=== PATIENT | male | born 1970 | race Caucasian/White ===

== ENCOUNTER 2017-05-26 12:18 | Inpatient (IN) | payer OTHER ==
[~2017-05-26] VITALS: Ht 193 cm; Wt 80.2 kg
[2017-05-26 13:01] LABS: INR 1.3 INR; PROTHROMBIN TIME 12.9 SECONDS (9.0-12.0)
[2017-05-26 13:06] LABS: ALANINE AMINOTRANSFERASE 84 U/L (12-78); ALBUMIN 2.1 G/DL (3.4-5.0); ALBUMIN/GLOBULIN RATIO 0.3 (1.1-1.5); ALKALINE PHOSPHATASE 325 IU/L (46-116); ANION GAP 11 (8-16); ASPARTATE AMINO TRANSFERASE 215 U/L (10-37); BILIRUBIN,TOTAL 2.4 MG/DL (0.1-1.0); BLOOD UREA NITROGEN 10 MG/DL (7-18); BUN/CREATININE RATIO 10.5 (5.4-32.0); CALCIUM 8.3 MG/DL (8.5-10.1); CHLORIDE 93 MMOL/L (99-107); CREATININE 0.95 MG/DL (0.60-1.10); GLUCOSE 115 MG/DL (70-104); SODIUM 135 MMOL/L (135-145); TOTAL CARBON DIOXIDE 30.9 MMOL/L (24-32); TOTAL PROTEIN 8.2 G/DL (6.4-8.2); eGFR 85 ML/MIN
[2017-05-26 13:11] LABS: BASOPHILS # (AUTO) 0.2 X10'3 (0-0.2); BASOPHILS % (AUTO) 0.7 % (0-1); EOSINOPHILS % (AUTO) 0.2 % (0-6); HEMATOCRIT 32.3 % (42.0-52.0); HEMOGLOBIN 11.1 g/dl (14.0-17.9); LYMPHOCYTES # (AUTO) 2.7 X10'3 (1.1-4.8); LYMPHOCYTES % (AUTO) 11.7 % (21-51); MEAN CORPUSCULAR HEMOGLOBIN 38.3 PG (27.0-31.0); MEAN CORPUSCULAR HGB CONC 34.5 % (33.0-36.5); MEAN PLATELET VOLUME 9.4 FL (7.4-10.4); MONOCYTES # (AUTO) 0.5 X10'3 (0-0.9); MONOCYTES % (AUTO) 2.1 % (2-12); NEUTROPHILS # (AUTO) 19.4 X10'3 (1.8-7.7); NEUTROPHILS % (AUTO) 85.3 % (42-75); PLATELET COUNT 289 X10'3 (140-440); POTASSIUM 2.4 MMOL/L (3.5-5.1); RED BLOOD COUNT 2.91 X10'6 (4.70-6.10); RED CELL DISTRIBUTION WIDTH 16.1 % (11.5-14.5); WHITE BLOOD COUNT 22.8 X10'3 (4.5-11.0)
[2017-05-26] MEDS ORDERED: MORPHINE 2MG in 2ml NS syringe IV PRN (13:25)
[2017-05-26] MEDS ORDERED: ondansetron/PF 4mg/2ml inj IV ONE (13:25)
[2017-05-26] MEDS ORDERED: normal saline 1000ML IV soln IVB ONE (13:25)
[2017-05-26] MEDS ORDERED: potassium Cl 10 mEq/100mL bag IV ONE (14:15)
[2017-05-26] MEDS ORDERED: potass W/LIDOcaine 10mEq/100ml 100 ML IV ONE (14:20)
[2017-05-26] MEDS: morphine 4 MG/ML inj SYRINge IV PRN ×2 (14:26→16:27)
[2017-05-26] MEDS ORDERED: NO HOME MEDS (14:46)
[2017-05-26] MEDS ORDERED: normal saline 1000ML IV soln IV ONE (14:50)
[2017-05-26] MEDS ORDERED: metroNIDAZOLE-Flagyl 500mg/NS 100 ML IV STA (14:51)
[2017-05-26] MEDS ORDERED: levoFLOXACIN-Levaquin 500mg/D5 100 ML IV ONE (14:55)
[2017-05-26 15:34] LABS: LIPASE 397 U/L (73-393)
[2017-05-26 16:07] LABS: CLARITY,URINE SLIGHTLY CLOUDY (Clear); COLOR,URINE YELLOW (Yellow); GLUCOSE, URINE NEGATIVE (Neg); KETONES,URINE NEGATIVE (Neg); LEUKOCYTE ESTERASE ,URINE NEGATIVE (Neg); NITRITES, URINE NEGATIVE (Neg); OCCULT BLOOD,URINE NEGATIVE (Neg); PROTEIN,URINE 30 mg/dl (Neg)
[2017-05-26 16:12] LABS: UA COLLECTION TYPE URINAL
[2017-05-26 16:15] LABS: SQUAMOUS EPITHELIAL CELL,UR FEW /LPF (FEW)
[2017-05-26 16:16] LABS: BACTERIA,URINE FEW /HPF (Neg); HYALINE CASTS >30 /LPF (NEGATIVE); RBC,URINE 0-2 /HPF (0-2); WBC,URINE 0-4 /HPF (0-4)
[2017-05-26 16:21] LABS: URINE AMPHETAMINE SCREEN NEGATIVE (Neg); URINE BARBITUATE SCREEN NEGATIVE (Neg); URINE BENZODIAZEPINES SCREEN NEGATIVE (Neg); URINE CANNABINOID SCREEN NEGATIVE (Neg); URINE COCAINE SCREEN NEGATIVE (Neg); URINE METHADONE SCREEN NEGATIVE (Neg); URINE OPIATE SCREEN POSITIVE (Neg); URINE PHENCYCLIDINE SCREEN NEGATIVE (Neg)
[2017-05-26] MEDS ORDERED: HYDROmorphone inj. 0.5 MG/0.5 ML DISP.SYRIN IV PRN (16:40)
[2017-05-26] MEDS: K and/or MAG REPLACEMENT MC SCH (16:40)
[2017-05-26] MEDS ORDERED: magnesium 4gm in 100ml NS 100 ML IV PRN (16:40)
[2017-05-26] MEDS ORDERED: magnesium 2GM in 50ml NS 50 ML IV PRN (16:40)
[2017-05-26] MEDS ORDERED: acetaminophen 325mg tablet PO PRN ×2 (16:40)
[2017-05-26] MEDS ORDERED: potassium Cl 40MEQ/NS 500ml 500 ML IV PRN (16:40)
[2017-05-26] MEDS ORDERED: ondansetron/PF 4mg/2ml inj IV PRN (16:40)
[2017-05-26] MEDS ORDERED: Potassium Cl inj 20 MEQ in normal saline 1000ml 990 ML IV SCH (16:40)
[2017-05-26] MEDS ORDERED: magnesium hydroxide 30ml (MOM) UD suspension PO PRN (16:40)
[2017-05-26] MEDS ORDERED: potassium Cl 20 mEq SR tablet PO PRN ×2 (16:40)
[2017-05-26] MEDS ORDERED: magnesium Cl slow-release 64mg tablet PO PRN (16:40)
[2017-05-26 17:05] LABS: HIV ANTIBODY 1&2 RAPID NON-REACTIVE (Neg)
[2017-05-26] MEDS: potassium cl 20mEq in 1/2 NS 1,000 ML IV SCH (17:36)
[2017-05-26 17:54] LABS: POTASSIUM 2.3 MMOL/L (3.5-5.1)
[2017-05-26 18:16] LABS: PLATELET ESTIMATE NORMAL; TOTAL CELLS COUNTED 100
[2017-05-26 18:17] LABS: ANISOCYTOSIS 1+
[2017-05-26 18:20] LABS: POLYCHROMASIA FEW
[2017-05-26 18:21] LABS: TOXIC GRANULATION 1+
[2017-05-26] MEDS: diatr meglu/diatrizoate 30ml oral sol.-(3 dose) bottle PO SCH (21:44)
[2017-05-26] MEDS ORDERED: potassium Cl oral solution 20 MEQ/15 ML PO PRN (21:49)
[2017-05-26] MEDS ORDERED: potassium Cl 40MEQ/NS 500ml 500 ML IV ONE (23:09)
[2017-05-26] MEDS: HYDROmorphone inj. 0.5 MG/0.5 ML DISP.SYRIN IV PRN (23:19)
[2017-05-27] VITALS: BP 121/72
[2017-05-27] MEDS: metroNIDAZOLE-Flagyl 500mg/NS 100 ML IV SCH ×4 (00:28→23:32)
[2017-05-27] MEDS: HYDROmorphone inj. 0.5 MG/0.5 ML DISP.SYRIN IV PRN ×4 (03:05→21:51)
[2017-05-27 05:48] LABS: ALANINE AMINOTRANSFERASE 62 U/L (12-78); ALBUMIN 1.6 G/DL (3.4-5.0); ALBUMIN/GLOBULIN RATIO 0.3 (1.1-1.5); ALKALINE PHOSPHATASE 248 IU/L (46-116); ANION GAP 7 (8-16); ASPARTATE AMINO TRANSFERASE 174 U/L (10-37); BILIRUBIN,TOTAL 3.5 MG/DL (0.1-1.0); BLOOD UREA NITROGEN 9 MG/DL (7-18); BUN/CREATININE RATIO 12.2 (5.4-32.0); CALCIUM 7.2 MG/DL (8.5-10.1); CHLORIDE 102 MMOL/L (99-107); CHOL/HDL RATIO 5.8 (0.00-4.99); CHOLESTEROL 75 MG/DL (0-200); CREATININE 0.74 MG/DL (0.60-1.10); GLUCOSE 85 MG/DL (70-104); HDL CHOLESTEROL 13 MG/DL (35-60); LDL CHOLESTEROL 55 MG/DL (50-100); MAGNESIUM 1.6 MG/DL (1.5-2.4); PHOSPHORUS 2.7 MG/DL (2.3-4.5); SODIUM 140 MMOL/L (135-145); TOTAL CARBON DIOXIDE 30.9 MMOL/L (24-32); TOTAL PROTEIN 6.4 G/DL (6.4-8.2); TRIGLYCERIDES 82 MG/DL (20-135); eGFR > 90 ML/MIN
[2017-05-27 05:52] LABS: BASOPHILS % (AUTO) 0.4 % (0-1); EOSINOPHILS # (AUTO) 0.3 X10'3 (0-0.9); HEMATOCRIT 26.7 % (42.0-52.0); HEMOGLOBIN 9.2 g/dl (14.0-17.9); LYMPHOCYTES # (AUTO) 1.5 X10'3 (1.1-4.8); LYMPHOCYTES % (AUTO) 10.9 % (21-51); MEAN CORPUSCULAR HEMOGLOBIN 38.8 PG (27.0-31.0); MEAN CORPUSCULAR HGB CONC 34.5 % (33.0-36.5); MEAN CORPUSCULAR VOLUME 112.3 FL (78-98); MONOCYTES # (AUTO) 0.7 X10'3 (0-0.9); MONOCYTES % (AUTO) 4.9 % (2-12); NEUTROPHILS # (AUTO) 11.2 X10'3 (1.8-7.7); NEUTROPHILS % (AUTO) 81.8 % (42-75); PLATELET COUNT 183 X10'3 (140-440); RED BLOOD COUNT 2.38 X10'6 (4.70-6.10); WHITE BLOOD COUNT 13.7 X10'3 (4.5-11.0)
[2017-05-27 06:23] VITALS: BP 106/68
[2017-05-27 06:25] LABS: POTASSIUM 2.8 MMOL/L (3.5-5.1)
[2017-05-27] MEDS: K and/or MAG REPLACEMENT MC SCH (07:03)
[2017-05-27] MEDS: levoFLOXACIN-Levaquin 500mg/D5 100 ML IV SCH (07:14)
[2017-05-27] MEDS: potassium Cl 40MEQ/NS 500ml 500 ML IV PRN (07:15)
[2017-05-27] MEDS: diatr meglu/diatrizoate 30ml oral sol.-(3 dose) bottle PO SCH ×2 (07:15→21:00)
[2017-05-27] MEDS: potassium cl 20mEq in 1/2 NS 1,000 ML IV SCH ×2 (07:17→23:32)
[2017-05-27] MEDS ORDERED: iohexol 300mg/ml 100ml inj. ONE (08:15)
[2017-05-27 09:04] LABS: CRYPTOSPORIDIUM AG NEGATIVE (Neg); GIARDIA LAMBLIA AG NEGATIVE (Neg)
[2017-05-27 09:10] LABS: C DIFF ANTIGEN NEGATIVE (NEGATIVE); C DIFF SPECIMEN=DIARRHEA? ACCEPTABLE; C DIFFICILE TOXINS A&B NEGATIVE (Neg)
[2017-05-27] MEDS ORDERED: LIDOcaine 1%/PF (10mg/ml) 5ml vial ONE (10:13)
[2017-05-27 11:48] VITALS: BP 110/72
[2017-05-27 12:04] LABS: ANISOCYTOSIS 1+; PLATELET ESTIMATE NORMAL
[2017-05-27 12:05] LABS: HYPOCHROMASIA 2+; POLYCHROMASIA FEW
[2017-05-27 12:09] LABS: STOMATOCYTES 1+
[2017-05-27] MEDS ORDERED: HYDROmorphone inj. 0.5 MG/0.5 ML DISP.SYRIN IV ONE (19:40)
[2017-05-27 20:00] VITALS: BP 100/62
[2017-05-27] MEDS: morphine 4 MG/ML inj SYRINge IV PRN (23:33)
[2017-05-28] VITALS: BP 131/88
[2017-05-28] MEDS: HYDROmorphone inj. 0.5 MG/0.5 ML DISP.SYRIN IV PRN ×5 (02:46→20:40)
[2017-05-28] MEDS ORDERED: loperamide 2mg capsule PO PRN (03:00)
[2017-05-28 05:42] LABS: BASOPHILS # (AUTO) 0.1 X10'3 (0-0.2); BASOPHILS % (AUTO) 0.9 % (0-1); EOSINOPHILS # (AUTO) 0.2 X10'3 (0-0.9); EOSINOPHILS % (AUTO) 1.3 % (0-6); HEMATOCRIT 29.8 % (42.0-52.0); HEMOGLOBIN 10.1 g/dl (14.0-17.9); LYMPHOCYTES # (AUTO) 1.7 X10'3 (1.1-4.8); LYMPHOCYTES % (AUTO) 11.7 % (21-51); MEAN CORPUSCULAR HEMOGLOBIN 38.6 PG (27.0-31.0); MEAN CORPUSCULAR HGB CONC 33.9 % (33.0-36.5); MEAN CORPUSCULAR VOLUME 113.9 FL (78-98); MEAN PLATELET VOLUME 9.3 FL (7.4-10.4); MONOCYTES # (AUTO) 0.7 X10'3 (0-0.9); MONOCYTES % (AUTO) 4.8 % (2-12); NEUTROPHILS # (AUTO) 11.8 X10'3 (1.8-7.7); NEUTROPHILS % (AUTO) 81.3 % (42-75); PLATELET COUNT 191 X10'3 (140-440); RED BLOOD COUNT 2.61 X10'6 (4.70-6.10); RED CELL DISTRIBUTION WIDTH 17.4 % (11.5-14.5); WHITE BLOOD COUNT 14.5 X10'3 (4.5-11.0)
[2017-05-28 05:59] LABS: ALANINE AMINOTRANSFERASE 72 U/L (12-78); ALBUMIN 1.8 G/DL (3.4-5.0); ALBUMIN/GLOBULIN RATIO 0.3 (1.1-1.5); ALKALINE PHOSPHATASE 308 IU/L (46-116); ANION GAP 10 (8-16); ASPARTATE AMINO TRANSFERASE 195 U/L (10-37); BILIRUBIN,TOTAL 3.3 MG/DL (0.1-1.0); BLOOD UREA NITROGEN 9 MG/DL (7-18); BUN/CREATININE RATIO 12.7 (5.4-32.0); CALCIUM 7.3 MG/DL (8.5-10.1); CHLORIDE 104 MMOL/L (99-107); CREATININE 0.71 MG/DL (0.60-1.10); GLUCOSE 79 MG/DL (70-104); MAGNESIUM 1.5 MG/DL (1.5-2.4); PHOSPHORUS 1.9 MG/DL (2.3-4.5); POTASSIUM 3.3 MMOL/L (3.5-5.1); SODIUM 140 MMOL/L (135-145); TOTAL PROTEIN 7.5 G/DL (6.4-8.2); eGFR > 90 ML/MIN
[2017-05-28 07:09] VITALS: BP 122/87
[2017-05-28] MEDS: metroNIDAZOLE-Flagyl 500mg/NS 100 ML IV SCH ×3 (07:49→23:26)
[2017-05-28] MEDS: levoTHYROXINE 25mcg tablet PO SCH (07:49)
[2017-05-28] MEDS: K and/or MAG REPLACEMENT MC SCH (07:56)
[2017-05-28 08:29] LABS: ANISOCYTOSIS 1+; PLATELET ESTIMATE NORMAL
[2017-05-28 08:30] LABS: POLYCHROMASIA FEW; TARGET CELLS FEW
[2017-05-28] MEDS: potassium cl 20mEq in 1/2 NS 1,000 ML IV SCH ×2 (09:00→18:52)
[2017-05-28] MEDS: levoFLOXACIN-Levaquin 500mg/D5 100 ML IV SCH (09:31)
[2017-05-28 12:19] VITALS: BP 146/99
[2017-05-28] MEDS: potassium Cl 40MEQ/NS 500ml 500 ML IV PRN (12:51)
[2017-05-28 13:24] LABS: HBSAG SCREEN Negative (Negative); HEP A AB, IGM Negative (Negative); HEP B CORE AB, IGM Negative (Negative); HEPATITIS C ANTIBODY <0.1 s/co ratio (0.0-0.9)
[2017-05-28] MEDS: lactobacillus rhamnosus 10,000 MMU CELLS/CAPSULE PO SCH (19:33)
[2017-05-28] MEDS: mag hydrox/Alum hydrox/simeth 30ml oral suspension PO PRN ×2 (19:33→23:33)
[2017-05-28 20:00] VITALS: BP 113/74
[2017-05-28] MEDS: nicotine 14mg patch - 24hr TD SCH (20:30)
[2017-05-29] VITALS: BP 106/69
[2017-05-29] MEDS: HYDROmorphone inj. 0.5 MG/0.5 ML DISP.SYRIN IV PRN ×3 (02:44→10:32)
[2017-05-29 05:35] LABS: ALANINE AMINOTRANSFERASE 72 U/L (12-78); ALBUMIN/GLOBULIN RATIO 0.4 (1.1-1.5); ALKALINE PHOSPHATASE 308 IU/L (46-116); ANION GAP 10 (8-16); ASPARTATE AMINO TRANSFERASE 175 U/L (10-37); BLOOD UREA NITROGEN 10 MG/DL (7-18); BUN/CREATININE RATIO 14.5 (5.4-32.0); CALCIUM 7.4 MG/DL (8.5-10.1); CHLORIDE 104 MMOL/L (99-107); CREATININE 0.69 MG/DL (0.60-1.10); GLUCOSE 80 MG/DL (70-104); MAGNESIUM 1.6 MG/DL (1.5-2.4); PHOSPHORUS 2.4 MG/DL (2.3-4.5); POTASSIUM 3.1 MMOL/L (3.5-5.1); SODIUM 139 MMOL/L (135-145); TOTAL CARBON DIOXIDE 24.6 MMOL/L (24-32); TOTAL PROTEIN 7.7 G/DL (6.4-8.2); eGFR > 90 ML/MIN
[2017-05-29 05:36] LABS: BASOPHILS % (AUTO) 0.3 % (0-1); EOSINOPHILS # (AUTO) 0.2 X10'3 (0-0.9); EOSINOPHILS % (AUTO) 1.6 % (0-6); HEMATOCRIT 29.4 % (42.0-52.0); HEMOGLOBIN 10.1 g/dl (14.0-17.9); LYMPHOCYTES # (AUTO) 1.7 X10'3 (1.1-4.8); LYMPHOCYTES % (AUTO) 11.8 % (21-51); MEAN CORPUSCULAR HEMOGLOBIN 39.3 PG (27.0-31.0); MEAN CORPUSCULAR HGB CONC 34.2 % (33.0-36.5); MEAN CORPUSCULAR VOLUME 114.9 FL (78-98); MONOCYTES # (AUTO) 0.5 X10'3 (0-0.9); MONOCYTES % (AUTO) 3.5 % (2-12); NEUTROPHILS # (AUTO) 12.1 X10'3 (1.8-7.7); NEUTROPHILS % (AUTO) 82.8 % (42-75); PLATELET COUNT 222 X10'3 (140-440); RED BLOOD COUNT 2.56 X10'6 (4.70-6.10); WHITE BLOOD COUNT 14.6 X10'3 (4.5-11.0)
[2017-05-29 05:51] LABS: ANISOCYTOSIS 2+; PLATELET ESTIMATE NORMAL
[2017-05-29 07:00] VITALS: BP 103/74
[2017-05-29] MEDS: potassium Cl oral solution 20 MEQ/15 ML PO PRN ×3 (07:36→18:51)
[2017-05-29] MEDS: lactobacillus rhamnosus 10,000 MMU CELLS/CAPSULE PO SCH ×2 (07:37→19:17)
[2017-05-29] MEDS: levoTHYROXINE 25mcg tablet PO SCH (07:37)
[2017-05-29] MEDS: levoFLOXACIN-Levaquin 500mg/D5 100 ML IV SCH (07:38)
[2017-05-29] MEDS: mag hydrox/Alum hydrox/simeth 30ml oral suspension PO PRN ×4 (07:41→23:15)
[2017-05-29] MEDS: K and/or MAG REPLACEMENT MC SCH (08:00)
[2017-05-29] MEDS: metroNIDAZOLE-Flagyl 500mg/NS 100 ML IV SCH ×3 (09:45→23:15)
[2017-05-29] MEDS: potassium cl 20mEq in 1/2 NS 1,000 ML IV SCH (09:45)
[2017-05-29 11:00] VITALS: BP 96/73
[2017-05-29] MEDS ORDERED: traMADol 50MG tablet PO PRN (12:00)
[2017-05-29] MEDS: traMADol 50MG tablet PO PRN (12:49)
[2017-05-29 18:00] VITALS: BP 110/78
[2017-05-29] MEDS ORDERED: HYDROmorphone 1 mg/ml syringe IV ONE ×2 (19:00→19:15)
[2017-05-29] MEDS ORDERED: HYDROmorphone inj. 0.5 MG/0.5 ML DISP.SYRIN ONE ×2 (19:04→19:13)
[2017-05-29] MEDS ORDERED: HYDROmorphone inj. 0.5 MG/0.5 ML DISP.SYRIN IV ONE ×2 (19:20→19:30)
[2017-05-29] MEDS: nicotine 14mg patch - 24hr TD SCH (19:50)
[2017-05-30] VITALS: BP 115/81
[2017-05-30] MEDS: traMADol 50MG tablet PO PRN ×2 (00:57→14:44)
[2017-05-30 05:31] LABS: BASOPHILS % (AUTO) 0.3 % (0-1); EOSINOPHILS # (AUTO) 0.2 X10'3 (0-0.9); EOSINOPHILS % (AUTO) 2.2 % (0-6); HEMOGLOBIN 9.2 g/dl (14.0-17.9); LYMPHOCYTES # (AUTO) 1.4 X10'3 (1.1-4.8); LYMPHOCYTES % (AUTO) 12.7 % (21-51); MEAN CORPUSCULAR HEMOGLOBIN 39.1 PG (27.0-31.0); MEAN PLATELET VOLUME 8.8 FL (7.4-10.4); MONOCYTES # (AUTO) 0.6 X10'3 (0-0.9); MONOCYTES % (AUTO) 5.3 % (2-12); NEUTROPHILS # (AUTO) 8.8 X10'3 (1.8-7.7); NEUTROPHILS % (AUTO) 79.5 % (42-75); PLATELET COUNT 178 X10'3 (140-440); RED BLOOD COUNT 2.35 X10'6 (4.70-6.10); WHITE BLOOD COUNT 11.1 X10'3 (4.5-11.0)
[2017-05-30 05:44] LABS: ALANINE AMINOTRANSFERASE 55 U/L (12-78); ALBUMIN 1.7 G/DL (3.4-5.0); ALBUMIN/GLOBULIN RATIO 0.4 (1.1-1.5); ALKALINE PHOSPHATASE 245 IU/L (46-116); ANION GAP 8 (8-16); ASPARTATE AMINO TRANSFERASE 141 U/L (10-37); BILIRUBIN,TOTAL 2.2 MG/DL (0.1-1.0); BLOOD UREA NITROGEN 10 MG/DL (7-18); BUN/CREATININE RATIO 15.2 (5.4-32.0); CALCIUM 7.3 MG/DL (8.5-10.1); CHLORIDE 108 MMOL/L (99-107); CREATININE 0.66 MG/DL (0.60-1.10); GLUCOSE 85 MG/DL (70-104); MAGNESIUM 1.7 MG/DL (1.5-2.4); PHOSPHORUS 2.4 MG/DL (2.3-4.5); POTASSIUM 3.3 MMOL/L (3.5-5.1); SODIUM 140 MMOL/L (135-145); TOTAL CARBON DIOXIDE 24.2 MMOL/L (24-32); TOTAL PROTEIN 6.5 G/DL (6.4-8.2); eGFR > 90 ML/MIN
[2017-05-30 07:19] LABS: ANISOCYTOSIS 2+; HYPOCHROMASIA 1+; PLATELET ESTIMATE NORMAL; POLYCHROMASIA 1+
[2017-05-30 07:20] LABS: ROULEAUX 1+; STOMATOCYTES 1+; TARGET CELLS 1+
[2017-05-30 07:25] VITALS: BP 101/68
[2017-05-30] MEDS: levoTHYROXINE 25mcg tablet PO SCH (07:39)
[2017-05-30] MEDS: metroNIDAZOLE-Flagyl 500mg/NS 100 ML IV SCH ×4 (07:39→21:32)
[2017-05-30] MEDS: lactobacillus rhamnosus 10,000 MMU CELLS/CAPSULE PO SCH ×2 (07:40→20:16)
[2017-05-30] MEDS: potassium Cl oral solution 20 MEQ/15 ML PO PRN ×3 (07:40→21:58)
[2017-05-30] MEDS: mag hydrox/Alum hydrox/simeth 30ml oral suspension PO PRN ×3 (07:40→21:58)
[2017-05-30] MEDS: K and/or MAG REPLACEMENT MC SCH ×2 (07:46→09:40)
[2017-05-30] MEDS ORDERED: magnesium 4gm in 100ml NS 100 ML IV PRN (09:40)
[2017-05-30] MEDS ORDERED: magnesium Cl slow-release 64mg tablet PO PRN (09:40)
[2017-05-30] MEDS ORDERED: magnesium 2GM in 50ml NS 50 ML IV PRN (09:40)
[2017-05-30] MEDS ORDERED: potassium Cl 40MEQ/NS 500ml 500 ML IV PRN ×2 (09:40)
[2017-05-30] MEDS ORDERED: potassium Cl 20 mEq SR tablet PO PRN (09:40)
[2017-05-30] MEDS: levoFLOXACIN-Levaquin 500mg/D5 100 ML IV SCH (11:47)
[2017-05-30 12:00] VITALS: BP 110/78
[2017-05-30 18:00] VITALS: BP_SYST 114; BP_SYST 144; BP_DIAS 67; BP_DIAS 81
[2017-05-30] MEDS ORDERED: haloperidol 5mg tablet PO PRN (19:30)
[2017-05-30] MEDS ORDERED: furosemide 20 MG/2 ML vial IV SCH (20:00)
[2017-05-30] MEDS: nicotine 14mg patch - 24hr TD SCH (20:16)
[2017-05-30] MEDS: LORazepam 1 MG tablet PO PRN (20:17)
[2017-05-30] MEDS: spironolactone 25 MG tablet PO SCH (20:42)
[2017-05-31] VITALS: BP 109/78
[2017-05-31] MEDS: traMADol 50MG tablet PO PRN ×2 (03:34→18:25)
[2017-05-31] MEDS: metroNIDAZOLE-Flagyl 500mg/NS 100 ML IV SCH ×3 (04:18→20:12)
[2017-05-31 06:08] LABS: BASOPHILS % (AUTO) 0.3 % (0-1); EOSINOPHILS # (AUTO) 0.3 X10'3 (0-0.9); EOSINOPHILS % (AUTO) 2.3 % (0-6); HEMATOCRIT 30.2 % (42.0-52.0); HEMOGLOBIN 10.1 g/dl (14.0-17.9); LYMPHOCYTES # (AUTO) 1.6 X10'3 (1.1-4.8); LYMPHOCYTES % (AUTO) 12.3 % (21-51); MEAN CORPUSCULAR HEMOGLOBIN 39.1 PG (27.0-31.0); MEAN CORPUSCULAR HGB CONC 33.5 % (33.0-36.5); MEAN CORPUSCULAR VOLUME 116.6 FL (78-98); MEAN PLATELET VOLUME 8.8 FL (7.4-10.4); MONOCYTES # (AUTO) 0.7 X10'3 (0-0.9); MONOCYTES % (AUTO) 5.1 % (2-12); NEUTROPHILS # (AUTO) 10.4 X10'3 (1.8-7.7); PLATELET COUNT 214 X10'3 (140-440); RED BLOOD COUNT 2.59 X10'6 (4.70-6.10); RED CELL DISTRIBUTION WIDTH 20.2 % (11.5-14.5)
[2017-05-31 06:13] LABS: INR 1.4 INR; PROTHROMBIN TIME 14.2 SECONDS (9.0-12.0)
[2017-05-31 06:17] LABS: ALANINE AMINOTRANSFERASE 56 U/L (12-78); ALBUMIN/GLOBULIN RATIO 0.4 (1.1-1.5); ALKALINE PHOSPHATASE 278 IU/L (46-116); AMYLASE 42 U/L (25-115); ANION GAP 9 (8-16); ASPARTATE AMINO TRANSFERASE 166 U/L (10-37); BILIRUBIN,TOTAL 2.1 MG/DL (0.1-1.0); BLOOD UREA NITROGEN 9 MG/DL (7-18); BUN/CREATININE RATIO 11.1 (5.4-32.0); CALCIUM 7.9 MG/DL (8.5-10.1); CHLORIDE 108 MMOL/L (99-107); CREATININE 0.81 MG/DL (0.60-1.10); GLUCOSE 97 MG/DL (70-104); LIPASE 117 U/L (73-393); MAGNESIUM 1.9 MG/DL (1.5-2.4); PHOSPHORUS 2.3 MG/DL (2.3-4.5); POTASSIUM 3.3 MMOL/L (3.5-5.1); SODIUM 141 MMOL/L (135-145); TOTAL CARBON DIOXIDE 23.8 MMOL/L (24-32); TOTAL PROTEIN 7.5 G/DL (6.4-8.2); eGFR > 90 ML/MIN
[2017-05-31 07:06] LABS: ANISOCYTOSIS 2+; PLATELET ESTIMATE NORMAL; POLYCHROMASIA 1+
[2017-05-31 07:17] VITALS: BP 104/69
[2017-05-31] MEDS: levoTHYROXINE 25mcg tablet PO SCH (07:53)
[2017-05-31] MEDS: pantoprazole 40 MG vial IV SCH (07:54)
[2017-05-31] MEDS: levoFLOXACIN-Levaquin 500mg/D5 100 ML IV SCH (07:54)
[2017-05-31] MEDS: thiamine 100mg tablet PO SCH (07:55)
[2017-05-31] MEDS: lactobacillus rhamnosus 10,000 MMU CELLS/CAPSULE PO SCH ×2 (07:55→20:10)
[2017-05-31] MEDS: folic acid 1mg tablet PO SCH (07:56)
[2017-05-31] MEDS: multivitamins, therapeutics tablet PO SCH (07:56)
[2017-05-31] MEDS: potassium Cl 20 mEq SR tablet PO PRN ×3 (07:57→18:21)
[2017-05-31] MEDS: LORazepam 1 MG tablet PO PRN ×3 (08:00→21:45)
[2017-05-31] MEDS ORDERED: furosemide 20 MG/2 ML vial IV SCH (08:00)
[2017-05-31] MEDS: K and/or MAG REPLACEMENT MC SCH (08:14)
[2017-05-31] MEDS ORDERED: spironolactone 25 MG tablet PO SCH (08:30)
[2017-05-31 20:00] VITALS: BP 104/69
[2017-05-31] MEDS: spironolactone 25 MG tablet PO SCH (20:10)
[2017-05-31] MEDS: nicotine 14mg patch - 24hr TD SCH (20:11)
[2017-05-31] MEDS: furosemide 40mg/4ml inj IV SCH (20:11)
[2017-06-01 00:27] VITALS: BP 96/67
[2017-06-01] MEDS: LORazepam 1 MG tablet PO PRN ×4 (04:46→20:34)
[2017-06-01] MEDS: metroNIDAZOLE-Flagyl 500mg/NS 100 ML IV SCH ×3 (04:47→20:34)
[2017-06-01 05:30] LABS: INR 1.4 INR; PROTHROMBIN TIME 14.1 SECONDS (9.0-12.0)
[2017-06-01 05:48] LABS: AMYLASE 44 U/L (25-115); LIPASE 183 U/L (73-393)
[2017-06-01 07:00] VITALS: BP 100/69
[2017-06-01] MEDS: K and/or MAG REPLACEMENT MC SCH (08:00)
[2017-06-01] MEDS: multivitamins, therapeutics tablet PO SCH (09:21)
[2017-06-01] MEDS: levoTHYROXINE 25mcg tablet PO SCH (09:21)
[2017-06-01] MEDS: traMADol 50MG tablet PO PRN ×2 (09:21→20:37)
[2017-06-01] MEDS: lactobacillus rhamnosus 10,000 MMU CELLS/CAPSULE PO SCH ×2 (09:22→20:34)
[2017-06-01] MEDS: spironolactone 25 MG tablet PO SCH ×2 (09:22→20:34)
[2017-06-01] MEDS: folic acid 1mg tablet PO SCH (09:22)
[2017-06-01] MEDS: pantoprazole 40 MG vial IV SCH (09:23)
[2017-06-01] MEDS: levoFLOXACIN-Levaquin 500mg/D5 100 ML IV SCH (09:23)
[2017-06-01] MEDS: furosemide 40mg/4ml inj IV SCH ×2 (09:23→20:34)
[2017-06-01] MEDS: thiamine 100mg tablet PO SCH (09:31)
[2017-06-01] MEDS: potassium Cl 20 mEq SR tablet PO PRN ×3 (09:44→20:34)
[2017-06-01 11:00] VITALS: BP 100/68
[2017-06-01 20:00] VITALS: BP 103/69
[2017-06-01] MEDS: nicotine 14mg patch - 24hr TD SCH (20:36)
[2017-06-02] VITALS: BP 103/68
[2017-06-02] MEDS: metroNIDAZOLE-Flagyl 500mg/NS 100 ML IV SCH ×3 (04:37→20:55)
[2017-06-02 05:41] LABS: INR 1.4 INR; PROTHROMBIN TIME 14.5 SECONDS (9.0-12.0)
[2017-06-02 05:45] LABS: AMYLASE 44 U/L (25-115); LIPASE 133 U/L (73-393)
[2017-06-02] MEDS: levoFLOXACIN-Levaquin 500mg/D5 100 ML IV SCH (06:51)
[2017-06-02 07:00] VITALS: BP 94/61
[2017-06-02] MEDS: furosemide 40mg/4ml inj IV SCH ×2 (08:00→20:49)
[2017-06-02] MEDS: K and/or MAG REPLACEMENT MC SCH (08:00)
[2017-06-02] MEDS: spironolactone 25 MG tablet PO SCH ×2 (08:30→20:00)
[2017-06-02 11:17] VITALS: BP 85/52
[2017-06-02] MEDS: levoTHYROXINE 25mcg tablet PO SCH (12:45)
[2017-06-02] MEDS: lactobacillus rhamnosus 10,000 MMU CELLS/CAPSULE PO SCH ×2 (12:46→20:46)
[2017-06-02] MEDS: thiamine 100mg tablet PO SCH (12:46)
[2017-06-02] MEDS: multivitamins, therapeutics tablet PO SCH (12:46)
[2017-06-02] MEDS: pantoprazole 40mg Tablet.DR PO SCH (12:46)
[2017-06-02] MEDS: traMADol 50MG tablet PO PRN ×2 (12:47→20:45)
[2017-06-02] MEDS: LORazepam 1 MG tablet PO PRN ×2 (12:49→16:24)
[2017-06-02] MEDS: folic acid 1mg tablet PO SCH (12:49)
[2017-06-02 13:06] LABS: BASOPHILS # (AUTO) 0.1 X10'3 (0-0.2); BASOPHILS % (AUTO) 0.5 % (0-1); EOSINOPHILS # (AUTO) 0.2 X10'3 (0-0.9); EOSINOPHILS % (AUTO) 1.5 % (0-6); HEMATOCRIT 31.4 % (42.0-52.0); HEMOGLOBIN 10.9 g/dl (14.0-17.9); LYMPHOCYTES # (AUTO) 1.9 X10'3 (1.1-4.8); LYMPHOCYTES % (AUTO) 15.4 % (21-51); MEAN CORPUSCULAR HGB CONC 34.8 % (33.0-36.5); MEAN CORPUSCULAR VOLUME 114.9 FL (78-98); MEAN PLATELET VOLUME 8.5 FL (7.4-10.4); MONOCYTES # (AUTO) 0.6 X10'3 (0-0.9); NEUTROPHILS # (AUTO) 9.6 X10'3 (1.8-7.7); NEUTROPHILS % (AUTO) 77.6 % (42-75); PLATELET COUNT 230 X10'3 (140-440); RED BLOOD COUNT 2.74 X10'6 (4.70-6.10); RED CELL DISTRIBUTION WIDTH 20.2 % (11.5-14.5); WHITE BLOOD COUNT 12.4 X10'3 (4.5-11.0)
[2017-06-02 13:21] LABS: ALANINE AMINOTRANSFERASE 51 U/L (12-78); ALBUMIN 2.1 G/DL (3.4-5.0); ALBUMIN/GLOBULIN RATIO 0.4 (1.1-1.5); ALKALINE PHOSPHATASE 269 IU/L (46-116); ANION GAP 10 (8-16); ASPARTATE AMINO TRANSFERASE 190 U/L (10-37); BILIRUBIN,TOTAL 2.4 MG/DL (0.1-1.0); BLOOD UREA NITROGEN 5 MG/DL (7-18); BUN/CREATININE RATIO 5.6 (5.4-32.0); CALCIUM 8.5 MG/DL (8.5-10.1); CHLORIDE 103 MMOL/L (99-107); GLUCOSE 97 MG/DL (70-104); LIPASE 190 U/L (73-393); POTASSIUM 3.9 MMOL/L (3.5-5.1); SODIUM 139 MMOL/L (135-145); TOTAL CARBON DIOXIDE 26.1 MMOL/L (24-32); eGFR > 90 ML/MIN
[2017-06-02 14:31] LABS: ANISOCYTOSIS 2+; PLATELET ESTIMATE NORMAL
[2017-06-02 14:35] LABS: POLYCHROMASIA FEW
[2017-06-02 15:54] VITALS: BP 102/72
[2017-06-02 20:00] VITALS: BP 104/77
[2017-06-02] MEDS: nicotine 14mg patch - 24hr TD SCH (20:47)
[2017-06-03] VITALS: BP 110/70
[2017-06-03] MEDS: metroNIDAZOLE-Flagyl 500mg/NS 100 ML IV SCH (05:54)
[2017-06-03 06:08] LABS: INR 1.4 INR; PROTHROMBIN TIME 14.4 SECONDS (9.0-12.0)
[2017-06-03 06:15] LABS: AMYLASE 63 U/L (25-115); LIPASE 243 U/L (73-393)
[2017-06-03 07:04] VITALS: BP 89/53
[2017-06-03] MEDS: levoTHYROXINE 25mcg tablet PO SCH (07:17)
[2017-06-03] MEDS: K and/or MAG REPLACEMENT MC SCH (08:00)
[2017-06-03] MEDS: levoFLOXACIN-Levaquin 500mg/D5 100 ML IV SCH (08:04)
[2017-06-03] MEDS: lactobacillus rhamnosus 10,000 MMU CELLS/CAPSULE PO SCH ×2 (08:04→20:55)
[2017-06-03] MEDS: furosemide 40mg/4ml inj IV SCH ×2 (08:04→20:00)
[2017-06-03] MEDS: spironolactone 25 MG tablet PO SCH ×2 (08:04→20:54)
[2017-06-03] MEDS: multivitamins, therapeutics tablet PO SCH (08:04)
[2017-06-03] MEDS: pantoprazole 40mg Tablet.DR PO SCH (08:04)
[2017-06-03] MEDS: folic acid 1mg tablet PO SCH (08:04)
[2017-06-03] MEDS: thiamine 100mg tablet PO SCH (08:04)
[2017-06-03] MEDS: traMADol 50MG tablet PO PRN (09:21)
[2017-06-03] MEDS ORDERED: oxyCODONE IR 5mg (immed. release) tablet PO PRN (09:40)
[2017-06-03 10:27] LABS: BASOPHILS % (AUTO) 0.1 % (0-1); EOSINOPHILS # (AUTO) 0.2 X10'3 (0-0.9); EOSINOPHILS % (AUTO) 1.6 % (0-6); HEMATOCRIT 28.9 % (42.0-52.0); HEMOGLOBIN 9.9 g/dl (14.0-17.9); LYMPHOCYTES # (AUTO) 1.2 X10'3 (1.1-4.8); LYMPHOCYTES % (AUTO) 12.2 % (21-51); MEAN CORPUSCULAR HEMOGLOBIN 39.3 PG (27.0-31.0); MEAN CORPUSCULAR VOLUME 115.4 FL (78-98); MEAN PLATELET VOLUME 8.6 FL (7.4-10.4); MONOCYTES # (AUTO) 0.8 X10'3 (0-0.9); MONOCYTES % (AUTO) 8.2 % (2-12); NEUTROPHILS % (AUTO) 77.9 % (42-75); PLATELET COUNT 216 X10'3 (140-440); RED BLOOD COUNT 2.51 X10'6 (4.70-6.10); RED CELL DISTRIBUTION WIDTH 20.3 % (11.5-14.5); WHITE BLOOD COUNT 10.2 X10'3 (4.5-11.0)
[2017-06-03 10:42] LABS: ALANINE AMINOTRANSFERASE 41 U/L (12-78); ALBUMIN 1.8 G/DL (3.4-5.0); ALBUMIN/GLOBULIN RATIO 0.3 (1.1-1.5); ALKALINE PHOSPHATASE 236 IU/L (46-116); ANION GAP 12 (8-16); ASPARTATE AMINO TRANSFERASE 150 U/L (10-37); BILIRUBIN,TOTAL 1.8 MG/DL (0.1-1.0); BLOOD UREA NITROGEN 7 MG/DL (7-18); BUN/CREATININE RATIO 7.2 (5.4-32.0); CALCIUM 7.5 MG/DL (8.5-10.1); CHLORIDE 103 MMOL/L (99-107); CREATININE 0.97 MG/DL (0.60-1.10); GLUCOSE 116 MG/DL (70-104); POTASSIUM 3.2 MMOL/L (3.5-5.1); SODIUM 139 MMOL/L (135-145); TOTAL CARBON DIOXIDE 24.3 MMOL/L (24-32); eGFR 83 ML/MIN
[2017-06-03 11:02] VITALS: BP 102/65
[2017-06-03] MEDS: oxyCODONE IR 5mg (immed. release) tablet PO PRN ×2 (12:39→20:55)
[2017-06-03] MEDS: metroNIDAZOLE 500mg tablet PO SCH ×2 (12:41→17:43)
[2017-06-03 15:01] LABS: PLATELET ESTIMATE NORMAL
[2017-06-03 15:02] LABS: ANISOCYTOSIS 2+
[2017-06-03] MEDS: LORazepam 0.5 MG tablet PO PRN (17:43)
[2017-06-03 20:00] VITALS: BP 104/76
[2017-06-03] MEDS: nicotine 14mg patch - 24hr TD SCH (20:53)
[2017-06-04] VITALS: BP 104/65
[2017-06-04 06:05] LABS: BASOPHILS % (AUTO) 0.5 % (0-1); EOSINOPHILS # (AUTO) 0.2 X10'3 (0-0.9); EOSINOPHILS % (AUTO) 2.2 % (0-6); HEMATOCRIT 27.4 % (42.0-52.0); HEMOGLOBIN 9.3 g/dl (14.0-17.9); LYMPHOCYTES # (AUTO) 1.4 X10'3 (1.1-4.8); LYMPHOCYTES % (AUTO) 13.7 % (21-51); MEAN CORPUSCULAR HGB CONC 33.8 % (33.0-36.5); MEAN CORPUSCULAR VOLUME 115.5 FL (78-98); MEAN PLATELET VOLUME 8.8 FL (7.4-10.4); MONOCYTES # (AUTO) 0.7 X10'3 (0-0.9); MONOCYTES % (AUTO) 6.9 % (2-12); NEUTROPHILS % (AUTO) 76.7 % (42-75); PLATELET COUNT 202 X10'3 (140-440); RED BLOOD COUNT 2.37 X10'6 (4.70-6.10); WHITE BLOOD COUNT 10.4 X10'3 (4.5-11.0)
[2017-06-04 06:20] LABS: INR 1.4 INR; PROTHROMBIN TIME 14.3 SECONDS (9.0-12.0)
[2017-06-04 06:38] LABS: ALANINE AMINOTRANSFERASE 34 U/L (12-78); ALBUMIN 1.7 G/DL (3.4-5.0); ALBUMIN/GLOBULIN RATIO 0.3 (1.1-1.5); ALKALINE PHOSPHATASE 217 IU/L (46-116); AMYLASE 70 U/L (25-115); ANION GAP 8 (8-16); ASPARTATE AMINO TRANSFERASE 121 U/L (10-37); BILIRUBIN,TOTAL 1.5 MG/DL (0.1-1.0); BLOOD UREA NITROGEN 10 MG/DL (7-18); BUN/CREATININE RATIO 10.4 (5.4-32.0); CALCIUM 7.7 MG/DL (8.5-10.1); CHLORIDE 104 MMOL/L (99-107); CREATININE 0.96 MG/DL (0.60-1.10); GLUCOSE 92 MG/DL (70-104); LIPASE 248 U/L (73-393); MAGNESIUM 1.4 MG/DL (1.5-2.4); POTASSIUM 3.1 MMOL/L (3.5-5.1); SODIUM 140 MMOL/L (135-145); TOTAL CARBON DIOXIDE 28.2 MMOL/L (24-32); TOTAL PROTEIN 6.6 G/DL (6.4-8.2); eGFR 84 ML/MIN
[2017-06-04] MEDS: pantoprazole 40mg Tablet.DR PO SCH (07:05)
[2017-06-04] MEDS: thiamine 100mg tablet PO SCH (07:05)
[2017-06-04] MEDS: LORazepam 0.5 MG tablet PO PRN (07:05)
[2017-06-04] MEDS: spironolactone 25 MG tablet PO SCH (07:05)
[2017-06-04] MEDS: multivitamins, therapeutics tablet PO SCH (07:05)
[2017-06-04] MEDS: folic acid 1mg tablet PO SCH (07:05)
[2017-06-04] MEDS: lactobacillus rhamnosus 10,000 MMU CELLS/CAPSULE PO SCH (07:05)
[2017-06-04] MEDS: metroNIDAZOLE 500mg tablet PO SCH ×2 (07:06→12:24)
[2017-06-04] MEDS: levoTHYROXINE 25mcg tablet PO SCH (07:06)
[2017-06-04 07:14] VITALS: BP 117/78
[2017-06-04] MEDS: furosemide 40mg/4ml inj IV SCH (07:19)
[2017-06-04] MEDS: K and/or MAG REPLACEMENT MC SCH (08:00)
[2017-06-04 08:19] LABS: ANISOCYTOSIS 2+; PLATELET ESTIMATE NORMAL; POLYCHROMASIA FEW; TARGET CELLS FEW
[2017-06-04] MEDS ORDERED: LIDOcaine 1%/PF (10mg/ml) 5ml vial ONE (10:29)
[2017-06-04] MEDS ORDERED: potassium Cl 20 mEq SR tablet PO PRN ×2 (10:35)
[2017-06-04] MEDS ORDERED: potassium Cl 40MEQ/NS 500ml 500 ML IV PRN ×2 (10:35)
[2017-06-04] MEDS ORDERED: magnesium 4gm in 100ml NS 100 ML IV PRN (10:35)
[2017-06-04] MEDS ORDERED: magnesium 2GM in 50ml NS 50 ML IV PRN (10:35)
[2017-06-04] MEDS ORDERED: magnesium Cl slow-release 64mg tablet PO PRN (10:35)
[2017-06-04] MEDS ORDERED: LEVO25TA7 PO (10:42)
[2017-06-04] MEDS ORDERED: FOLI1TAB16 PO (10:42)
[2017-06-04] MEDS ORDERED: MULT-1179 PO (10:42)
[2017-06-04] MEDS ORDERED: THI100T PO (10:42)
[2017-06-04] MEDS: oxyCODONE IR 5mg (immed. release) tablet PO PRN (10:51)
[2017-06-04 10:58] VITALS: BP 113/79
[2017-06-04] MEDS ORDERED: levoFLOXACIN 500mg tablet PO SCH (11:00)
== END 2017-06-04 12:27 | disposition home or self-care (01) | DRG 391 ==
LOC: ER 12:19 → ED HOLD 16:39 → SUR 3N 22:35
PROVIDERS: ADMIT Family Medicine; ATTEND Family Medicine
PROC: 0DJW3ZZ Inspection of Peritoneum, Percutaneous Approach (ICD-10-PCS; principal; 2017-05-27)
PROC: BW211ZZ Computerized Tomography (CT Scan) of Abdomen and Pelvis using Low Osmolar Contrast (ICD-10-PCS; 2017-05-27)
DX: A09 Infectious gastroenteritis and colitis, unspecified (principal); E43 Unspecified severe protein-calorie malnutrition; K85.90 Acute pancreatitis without necrosis or infection, unspecified; D68.9 Coagulation defect, unspecified; R18.8 Other ascites; E83.42 Hypomagnesemia; K74.60 Unspecified cirrhosis of liver; E03.9 Hypothyroidism, unspecified; E87.6 Hypokalemia; D64.9 Anemia, unspecified; K75.9 Inflammatory liver disease, unspecified; K76.0 Fatty (change of) liver, not elsewhere classified; F17.210 Nicotine dependence, cigarettes, uncomplicated; R74.0 Nonspecific elevation of levels of transaminase and lactic acid dehydrogenase [LDH]; Z83.71 Family history of colonic polyps; Z88.5 Allergy status to narcotic agent; Z68.21 Body mass index [BMI] 21.0-21.9, adult; Z72.89 Other problems related to lifestyle
CPT/HCPCS: 36415; 71045; 74176; 74177; 74181; 76700; 76705; 80053; 80061; 80074; 80305; 80320; 81001; 82140; 82150; 82607; 82746; 83605; 83690; 83735; 84100; 84132; 84145; 84443; 85025; 85610; 86703; 87040; 87045; 87046; 87070; 87324; 87328; 87329; 87336; 87449; 89055; 96361; 96365; 96368; 96375; 96376; 99285; A6213; A6258; C9113; J1170; J1940; J1956; J2001; J2270; J2405; J3480; J3490; J7030; Q9963; Q9967

== ENCOUNTER 2017-07-07 14:18 | Emergency (ER) | payer OTHER ==
[~2017-07-07] VITALS: Ht 185.4 cm; Wt 85.1 kg
[~2017-07-07 14:18] MED LIST: FOLI1TAB16 PO; LEVO25TA7 PO; MULT-1179 PO; THI100T PO
[2017-07-07 15:28] LABS: BASOPHILS % (AUTO) 0.2 % (0-1); EOSINOPHILS # (AUTO) 0.5 X10'3 (0-0.9); EOSINOPHILS % (AUTO) 3.3 % (0-6); LYMPHOCYTES # (AUTO) 2.3 X10'3 (1.1-4.8); LYMPHOCYTES % (AUTO) 14.9 % (21-51); MEAN CORPUSCULAR HGB CONC 33.4 % (33.0-36.5); MEAN PLATELET VOLUME 8.7 FL (7.4-10.4); MONOCYTES % (AUTO) 6.6 % (2-12); NEUTROPHILS # (AUTO) 11.4 X10'3 (1.8-7.7); PLATELET COUNT 318 X10'3 (140-440); RED BLOOD COUNT 3.12 X10'6 (4.70-6.10); RED CELL DISTRIBUTION WIDTH 21.2 % (11.5-14.5); WHITE BLOOD COUNT 15.3 X10'3 (4.5-11.0)
[2017-07-07 15:36] LABS: INR 1.2 INR; PROTHROMBIN TIME 12.8 SECONDS (9.0-12.0)
[2017-07-07 15:42] LABS: ALANINE AMINOTRANSFERASE 28 U/L (12-78); ALBUMIN 2.4 G/DL (3.4-5.0); ALBUMIN/GLOBULIN RATIO 0.4 (1.1-1.5); ALKALINE PHOSPHATASE 266 IU/L (46-116); ANION GAP 11 (8-16); ASPARTATE AMINO TRANSFERASE 77 U/L (10-37); BILIRUBIN,TOTAL 1.1 MG/DL (0.1-1.0); BLOOD UREA NITROGEN 11 MG/DL (7-18); BUN/CREATININE RATIO 12.5 (5.4-32.0); CALCIUM 8.7 MG/DL (8.5-10.1); CHLORIDE 104 MMOL/L (99-107); CREATININE 0.88 MG/DL (0.60-1.10); GLUCOSE 94 MG/DL (70-104); POTASSIUM 3.6 MMOL/L (3.5-5.1); SODIUM 139 MMOL/L (135-145); TOTAL CARBON DIOXIDE 24.3 MMOL/L (24-32); TOTAL PROTEIN 8.2 G/DL (6.4-8.2); eGFR > 90 ML/MIN
[2017-07-07] MEDS ORDERED: potassium PO (17:16)
[2017-07-07] MEDS ORDERED: SPIR25TA3 PO (17:16)
[2017-07-07] MEDS ORDERED: LIDOcaine 1.5% w/epinephrine 1:200,000 5ml ampul IJ ONE (17:45)
[2017-07-07 19:05] LABS: CLARITY,URINE Cloudy (Clear); COLOR,URINE Dark Yellow (Yellow); GLUCOSE, URINE Negative (Neg); KETONES,URINE Negative (Neg); LEUKOCYTE ESTERASE ,URINE Trace (Neg); NITRITES, URINE Negative (Neg); OCCULT BLOOD,URINE Moderate (Neg); PROTEIN,URINE Trace mg/dl (Neg)
[2017-07-07 19:08] LABS: UA COLLECTION TYPE VOIDED
[2017-07-07 19:13] LABS: BACTERIA,URINE FEW /HPF (Neg); CAL OXALATE CRYSTALS 4+ /HPF (NEGATIVE); RBC,URINE 50-100 /HPF (0-2); SQUAMOUS EPITHELIAL CELL,UR FEW /LPF (FEW); WBC,URINE 0-4 /HPF (0-4)
[2017-07-07] MEDS ORDERED: oxyCODONE IR 5mg (immed. release) tablet PO ONE (20:25)
[2017-07-07] MEDS ORDERED: ondansetron 4mg rapidly disintigrating tab PO ONE (20:25)
[2017-07-07 23:07] VITALS: BP 114/79
== END 2017-07-07 23:08 | disposition home or self-care (01) ==
LOC: ER 14:18
DX: R18.8 Other ascites (principal); R10.9 Unspecified abdominal pain; Z98.890 Other specified postprocedural states; Z88.5 Allergy status to narcotic agent; Z79.899 Other long term (current) drug therapy
CPT/HCPCS: 36415; 49083; 80053; 81001; 85025; 85610; 87088; 99285; J3490

== ENCOUNTER 2017-09-03 09:40 | Inpatient (IN) | payer OTHER ==
[~2017-09-03] VITALS: Ht 653.8 cm; Wt 75.0 kg
[2017-09-03] VITALS (19 sets, daily range): BP systolic 89–123; BP diastolic 53–87
[~2017-09-03 09:40] MED LIST changes: -FOLI1TAB16 PO; -MULT-1179 PO; +SPIR25TA5 PO; -THI100T PO; +potassium PO
[2017-09-03] MEDS ORDERED: pantoprazole 40 MG vial IV ONE (10:10)
[2017-09-03] MEDS ORDERED: normal saline 1000ML IV soln IVB ONE (10:10)
[2017-09-03] MEDS ORDERED: pantoprazole IV 80 MG in normal saline 100ml IV soln 100 ML IV ONE (10:15)
[2017-09-03 10:18] LABS: BASOPHILS # (AUTO) 0.1 X10'3 (0-0.2); EOSINOPHILS # (AUTO) 0.3 X10'3 (0-0.9); EOSINOPHILS % (AUTO) 2.2 % (0-6); LYMPHOCYTES # (AUTO) 1.8 X10'3 (1.1-4.8); LYMPHOCYTES % (AUTO) 14.3 % (21-51); MEAN CORPUSCULAR HEMOGLOBIN 24.2 PG (27.0-31.0); MEAN CORPUSCULAR HGB CONC 31.6 % (33.0-36.5); MEAN CORPUSCULAR VOLUME 76.6 FL (78-98); MEAN PLATELET VOLUME 8.6 FL (7.4-10.4); MONOCYTES # (AUTO) 0.9 X10'3 (0-0.9); MONOCYTES % (AUTO) 7.2 % (2-12); NEUTROPHILS # (AUTO) 9.4 X10'3 (1.8-7.7); NEUTROPHILS % (AUTO) 75.3 % (42-75); PLATELET COUNT 450 X10'3 (140-440); RED BLOOD COUNT 2.54 X10'6 (4.70-6.10); RED CELL DISTRIBUTION WIDTH 17.1 % (11.5-14.5); WHITE BLOOD COUNT 12.4 X10'3 (4.5-11.0)
[2017-09-03 10:20] LABS: HEMOGLOBIN 6.2 g/dl (14.0-17.9)
[2017-09-03 10:22] LABS: HEMATOCRIT 19.5 % (42.0-52.0)
[2017-09-03 10:31] LABS: ANISOCYTOSIS 1+; HYPOCHROMASIA 1+; LARGE PLATELETS FEW; MICROCYTOSIS 1+; PLATELET ESTIMATE INCREASED; POLYCHROMASIA 1+
[2017-09-03 10:32] LABS: POIKILOCYTOSIS FEW; TARGET CELLS 1+
[2017-09-03 10:34] LABS: INR 1.3 INR; PARTIAL THROMBOPLASTIN TIME 26 SECONDS (22-32); PROTHROMBIN TIME 13.4 SECONDS (9.0-12.0)
[2017-09-03] MEDS ORDERED: magnesium 1gm/100ml D5W IVPB 100 ML IV PRN (10:35)
[2017-09-03] MEDS ORDERED: ondansetron/PF 4mg/2ml inj IV PRN (10:35)
[2017-09-03] MEDS ORDERED: magnesium Cl slow-release 64mg tablet PO PRN (10:35)
[2017-09-03] MEDS ORDERED: magnesium 4gm in 100ml NS 100 ML IV PRN (10:35)
[2017-09-03] MEDS ORDERED: acetaminophen 325mg tablet PO PRN (10:35)
[2017-09-03] MEDS ORDERED: potassium Cl 40MEQ/NS 500ml 500 ML IV PRN ×2 (10:35)
[2017-09-03] MEDS ORDERED: potassium Cl 20 mEq SR tablet PO PRN ×2 (10:35)
[2017-09-03 10:38] LABS: ALANINE AMINOTRANSFERASE 17 U/L (12-78); ALBUMIN 2.4 G/DL (3.4-5.0); ALBUMIN/GLOBULIN RATIO 0.4 (1.1-1.5); ALKALINE PHOSPHATASE 252 IU/L (46-116); ANION GAP 14 (8-16); ASPARTATE AMINO TRANSFERASE 42 U/L (10-37); BILIRUBIN,TOTAL 1.1 MG/DL (0.1-1.0); BLOOD UREA NITROGEN 23 MG/DL (7-18); BUN/CREATININE RATIO 16.7 (5.4-32.0); CALCIUM 8.6 MG/DL (8.5-10.1); CHLORIDE 99 MMOL/L (99-107); CREATININE 1.38 MG/DL (0.60-1.10); GLUCOSE 104 MG/DL (70-104); MAGNESIUM 1.6 MG/DL (1.5-2.4); POTASSIUM 3.1 MMOL/L (3.5-5.1); SODIUM 137 MMOL/L (135-145); TOTAL CARBON DIOXIDE 24.3 MMOL/L (24-32); TOTAL PROTEIN 8.2 G/DL (6.4-8.2); eGFR 55 ML/MIN
[2017-09-03] MEDS ORDERED: LEVO50TA8 PO (10:58)
[2017-09-03] MEDS: pantoprazole 40MG/NS 100ML BAG 100 ML IV SCH ×4 (11:00→21:28)
[2017-09-03] MEDS ORDERED: pantoprazole 40MG/NS 100ML BAG 100 ML IV SCH (11:00)
[2017-09-03] MEDS: normal saline 1000ml 1,000 ML IV SCH ×2 (11:36→20:34)
[2017-09-03 12:58] LABS: CLARITY,URINE CLOUDY (Clear); COLOR,URINE DARK YELLOW (Yellow); GLUCOSE, URINE NEGATIVE (Neg); KETONES,URINE NEGATIVE (Neg); LEUKOCYTE ESTERASE ,URINE NEGATIVE (Neg); NITRITES, URINE NEGATIVE (Neg); OCCULT BLOOD,URINE LARGE (Neg); PROTEIN,URINE NEGATIVE (Neg); UA COLLECTION TYPE CLN CATCH MIDSTREAM; UROBILINOGEN,URINE 0.2 E.U/dL (0.2-1.0)
[2017-09-03 13:05] LABS: BACTERIA,URINE FEW /HPF (Neg); HYALINE CASTS 0-3 /LPF (NEGATIVE); MUCUS STRANDS FEW /LPF (Neg); RBC,URINE TNTC /HPF (0-2); SQUAMOUS EPITHELIAL CELL,UR FEW /LPF (FEW)
[2017-09-03] MEDS ORDERED: normal saline 1000ml 1,000 ML IV SCH (13:05)
[2017-09-03] MEDS ORDERED: simethicone 40mg/0.6ml oral drops 30ml MC ONE (13:05)
[2017-09-03] MEDS ORDERED: fentaNYL/PF 50MCG/1 ML 2ML syringe IV PRN (13:05)
[2017-09-03] MEDS ORDERED: LIDOcaine Viscous 15ml cup PO ONE (13:05)
[2017-09-03] MEDS ORDERED: MIDAZolam 5mg/5ml vial IV PRN (13:05)
[2017-09-03] MEDS ORDERED: LIDOcaine Viscous 15ml cup ONE (13:43)
[2017-09-03] MEDS ORDERED: MIDAZolam 5mg/5ml vial ONE (13:43)
[2017-09-03] MEDS ORDERED: fentaNYL/PF 50MCG/1 ML 2ML syringe ONE (13:43)
[2017-09-03] MEDS ORDERED: octreotide inj. 1,250 MCG in normal saline 250ml IV soln 243.75 ML IV SCH (15:00)
[2017-09-03 15:33] LABS: OCCULT BLOOD STOOL POSITIVE (Neg)
[2017-09-03 16:31] LABS: BASOPHILS # (AUTO) 0.1 X10'3 (0-0.2); BASOPHILS % (AUTO) 0.7 % (0-1); EOSINOPHILS # (AUTO) 0.2 X10'3 (0-0.9); EOSINOPHILS % (AUTO) 2.2 % (0-6); LYMPHOCYTES # (AUTO) 1.4 X10'3 (1.1-4.8); LYMPHOCYTES % (AUTO) 14.5 % (21-51); MEAN CORPUSCULAR HEMOGLOBIN 25.6 PG (27.0-31.0); MEAN CORPUSCULAR HGB CONC 32.4 % (33.0-36.5); MEAN PLATELET VOLUME 8.6 FL (7.4-10.4); MONOCYTES # (AUTO) 0.6 X10'3 (0-0.9); NEUTROPHILS % (AUTO) 75.6 % (42-75); PLATELET COUNT 306 X10'3 (140-440); RED BLOOD COUNT 2.37 X10'6 (4.70-6.10); RED CELL DISTRIBUTION WIDTH 17.7 % (11.5-14.5); WHITE BLOOD COUNT 9.3 X10'3 (4.5-11.0)
[2017-09-03 16:34] LABS: HEMATOCRIT 18.7 % (42.0-52.0); HEMOGLOBIN 6.1 g/dl (14.0-17.9)
[2017-09-03] MEDS: CefTRIAXone/D5W-Rocephin 1gm 50 ML IV SCH (18:21)
[2017-09-03] MEDS: LORazepam 0.5 MG tablet PO PRN ×2 (18:25→22:40)
[2017-09-03 18:45] LABS: BASOPHILS % (AUTO) 0.5 % (0-1); EOSINOPHILS # (AUTO) 0.2 X10'3 (0-0.9); EOSINOPHILS % (AUTO) 1.9 % (0-6); HEMATOCRIT 23.4 % (42.0-52.0); HEMOGLOBIN 7.8 g/dl (14.0-17.9); LYMPHOCYTES # (AUTO) 1.8 X10'3 (1.1-4.8); LYMPHOCYTES % (AUTO) 17.5 % (21-51); MEAN CORPUSCULAR HEMOGLOBIN 26.7 PG (27.0-31.0); MEAN CORPUSCULAR HGB CONC 33.1 % (33.0-36.5); MEAN CORPUSCULAR VOLUME 80.8 FL (78-98); MEAN PLATELET VOLUME 8.8 FL (7.4-10.4); MONOCYTES % (AUTO) 9.2 % (2-12); NEUTROPHILS # (AUTO) 7.3 X10'3 (1.8-7.7); NEUTROPHILS % (AUTO) 70.9 % (42-75); PLATELET COUNT 296 X10'3 (140-440); RED CELL DISTRIBUTION WIDTH 17.4 % (11.5-14.5); WHITE BLOOD COUNT 10.4 X10'3 (4.5-11.0)
[2017-09-04] VITALS (12 sets, daily range): BP systolic 93–139; BP diastolic 65–98
[2017-09-04] MEDS: pantoprazole 40MG/NS 100ML BAG 100 ML IV SCH ×5 (03:07→21:57)
[2017-09-04] MEDS: LORazepam 0.5 MG tablet PO PRN ×3 (03:28→19:05)
[2017-09-04] MEDS: normal saline 1000ml 1,000 ML IV SCH ×3 (03:29→21:58)
[2017-09-04] MEDS: K and/or MAG REPLACEMENT MC SCH (08:00)
[2017-09-04 08:01] LABS: BASOPHILS # (AUTO) 0.1 X10'3 (0-0.2); BASOPHILS % (AUTO) 1.1 % (0-1); EOSINOPHILS # (AUTO) 0.3 X10'3 (0-0.9); EOSINOPHILS % (AUTO) 3.1 % (0-6); HEMATOCRIT 29.3 % (42.0-52.0); HEMOGLOBIN 9.5 g/dl (14.0-17.9); LYMPHOCYTES # (AUTO) 1.3 X10'3 (1.1-4.8); LYMPHOCYTES % (AUTO) 14.1 % (21-51); MEAN CORPUSCULAR HEMOGLOBIN 26.8 PG (27.0-31.0); MEAN CORPUSCULAR HGB CONC 32.5 % (33.0-36.5); MEAN CORPUSCULAR VOLUME 82.6 FL (78-98); MEAN PLATELET VOLUME 8.5 FL (7.4-10.4); MONOCYTES # (AUTO) 0.7 X10'3 (0-0.9); MONOCYTES % (AUTO) 8.1 % (2-12); NEUTROPHILS # (AUTO) 6.6 X10'3 (1.8-7.7); NEUTROPHILS % (AUTO) 73.6 % (42-75); PLATELET COUNT 277 X10'3 (140-440); RED BLOOD COUNT 3.55 X10'6 (4.70-6.10)
[2017-09-04 08:20] LABS: ALANINE AMINOTRANSFERASE 18 U/L (12-78); ALBUMIN 1.9 G/DL (3.4-5.0); ALBUMIN/GLOBULIN RATIO 0.4 (1.1-1.5); ALKALINE PHOSPHATASE 179 IU/L (46-116); ANION GAP 9 (8-16); ASPARTATE AMINO TRANSFERASE 48 U/L (10-37); BILIRUBIN,TOTAL 2.9 MG/DL (0.1-1.0); BLOOD UREA NITROGEN 20 MG/DL (7-18); BUN/CREATININE RATIO 16.7 (5.4-32.0); CALCIUM 7.4 MG/DL (8.5-10.1); CHLORIDE 107 MMOL/L (99-107); CHOL/HDL RATIO 5.6 (0.00-4.99); CHOLESTEROL 106 MG/DL (0-200); GLUCOSE 78 MG/DL (70-104); HDL CHOLESTEROL 19 MG/DL (35-60); LDL CHOLESTEROL 78 MG/DL (50-100); MAGNESIUM 1.5 MG/DL (1.5-2.4); POTASSIUM 3.6 MMOL/L (3.5-5.1); SODIUM 139 MMOL/L (135-145); TOTAL CARBON DIOXIDE 23.1 MMOL/L (24-32); TOTAL PROTEIN 6.6 G/DL (6.4-8.2); TRIGLYCERIDES 86 MG/DL (20-135); eGFR 65 ML/MIN
[2017-09-04] MEDS: CefTRIAXone/D5W-Rocephin 1gm 50 ML IV SCH (09:07)
[2017-09-04] MEDS: levoTHYROXINE 25mcg tablet PO SCH (09:07)
[2017-09-04] MEDS: nicotine 14mg patch - 24hr TD SCH (11:36)
[2017-09-04] MEDS ORDERED: PANT40TA4 PO (12:23)
[2017-09-04] MEDS ORDERED: RIFA550T PO (12:23)
[2017-09-04 12:51] LABS: BASOPHILS # (AUTO) 0.1 X10'3 (0-0.2); BASOPHILS % (AUTO) 0.6 % (0-1); EOSINOPHILS # (AUTO) 0.3 X10'3 (0-0.9); EOSINOPHILS % (AUTO) 3.2 % (0-6); HEMATOCRIT 33.1 % (42.0-52.0); HEMOGLOBIN 10.8 g/dl (14.0-17.9); LYMPHOCYTES # (AUTO) 1.4 X10'3 (1.1-4.8); LYMPHOCYTES % (AUTO) 13.2 % (21-51); MEAN CORPUSCULAR HEMOGLOBIN 26.7 PG (27.0-31.0); MEAN CORPUSCULAR HGB CONC 32.5 % (33.0-36.5); MEAN PLATELET VOLUME 8.8 FL (7.4-10.4); MONOCYTES # (AUTO) 0.8 X10'3 (0-0.9); PLATELET COUNT 288 X10'3 (140-440); RED BLOOD COUNT 4.03 X10'6 (4.70-6.10); RED CELL DISTRIBUTION WIDTH 17.4 % (11.5-14.5); WHITE BLOOD COUNT 10.7 X10'3 (4.5-11.0)
[2017-09-04] MEDS ORDERED: morphine 2 MG/ML inj. syringe IV ONE (13:30)
[2017-09-04] MEDS ORDERED: LEVO500T2 PO (13:30)
[2017-09-04] MEDS: lactobacillus rhamnosus 10,000 MMU CELLS/CAPSULE PO SCH (20:01)
[2017-09-04] MEDS: morphine 2 MG/ML inj. syringe IV PRN (20:02)
[2017-09-04 20:25] LABS: BASOPHILS # (AUTO) 0.1 X10'3 (0-0.2); BASOPHILS % (AUTO) 1.1 % (0-1); EOSINOPHILS # (AUTO) 0.3 X10'3 (0-0.9); EOSINOPHILS % (AUTO) 2.6 % (0-6); HEMATOCRIT 31.1 % (42.0-52.0); HEMOGLOBIN 10.4 g/dl (14.0-17.9); LYMPHOCYTES # (AUTO) 1.6 X10'3 (1.1-4.8); LYMPHOCYTES % (AUTO) 14.7 % (21-51); MEAN CORPUSCULAR HEMOGLOBIN 27.1 PG (27.0-31.0); MEAN CORPUSCULAR HGB CONC 33.3 % (33.0-36.5); MEAN CORPUSCULAR VOLUME 81.5 FL (78-98); MEAN PLATELET VOLUME 8.6 FL (7.4-10.4); MONOCYTES % (AUTO) 9.2 % (2-12); NEUTROPHILS # (AUTO) 7.8 X10'3 (1.8-7.7); NEUTROPHILS % (AUTO) 72.4 % (42-75); PLATELET COUNT 286 X10'3 (140-440); RED BLOOD COUNT 3.82 X10'6 (4.70-6.10); WHITE BLOOD COUNT 10.8 X10'3 (4.5-11.0)
[2017-09-05] VITALS: BP 125/90
[2017-09-05] MEDS: LORazepam 0.5 MG tablet PO PRN ×2 (01:12→18:41)
[2017-09-05 01:24] LABS: BASOPHILS # (AUTO) 0.1 X10'3 (0-0.2); BASOPHILS % (AUTO) 1.1 % (0-1); EOSINOPHILS # (AUTO) 0.3 X10'3 (0-0.9); EOSINOPHILS % (AUTO) 2.6 % (0-6); HEMATOCRIT 32.8 % (42.0-52.0); HEMOGLOBIN 10.7 g/dl (14.0-17.9); LYMPHOCYTES # (AUTO) 1.7 X10'3 (1.1-4.8); LYMPHOCYTES % (AUTO) 16.7 % (21-51); MEAN CORPUSCULAR HGB CONC 32.7 % (33.0-36.5); MEAN CORPUSCULAR VOLUME 82.5 FL (78-98); MEAN PLATELET VOLUME 8.7 FL (7.4-10.4); MONOCYTES # (AUTO) 0.6 X10'3 (0-0.9); MONOCYTES % (AUTO) 6.1 % (2-12); NEUTROPHILS # (AUTO) 7.7 X10'3 (1.8-7.7); NEUTROPHILS % (AUTO) 73.5 % (42-75); PLATELET COUNT 336 X10'3 (140-440); RED BLOOD COUNT 3.97 X10'6 (4.70-6.10); RED CELL DISTRIBUTION WIDTH 16.4 % (11.5-14.5); WHITE BLOOD COUNT 10.4 X10'3 (4.5-11.0)
[2017-09-05 01:54] LABS: ALANINE AMINOTRANSFERASE 18 U/L (12-78); ALBUMIN/GLOBULIN RATIO 0.4 (1.1-1.5); ALKALINE PHOSPHATASE 185 IU/L (46-116); ANION GAP 9 (8-16); ASPARTATE AMINO TRANSFERASE 48 U/L (10-37); BILIRUBIN,TOTAL 2.1 MG/DL (0.1-1.0); BLOOD UREA NITROGEN 19 MG/DL (7-18); BUN/CREATININE RATIO 17.3 (5.4-32.0); CALCIUM 7.4 MG/DL (8.5-10.1); CHLORIDE 105 MMOL/L (99-107); GLUCOSE 85 MG/DL (70-104); MAGNESIUM 1.7 MG/DL (1.5-2.4); POTASSIUM 3.7 MMOL/L (3.5-5.1); SODIUM 138 MMOL/L (135-145); TOTAL CARBON DIOXIDE 23.7 MMOL/L (24-32); TOTAL PROTEIN 7.2 G/DL (6.4-8.2); eGFR 72 ML/MIN
[2017-09-05] MEDS: morphine 2 MG/ML inj. syringe IV PRN ×4 (02:06→20:23)
[2017-09-05] MEDS: pantoprazole 40MG/NS 100ML BAG 100 ML IV SCH ×2 (02:11→05:53)
[2017-09-05 06:58] LABS: BASOPHILS # (AUTO) 0.1 X10'3 (0-0.2); BASOPHILS % (AUTO) 0.8 % (0-1); EOSINOPHILS # (AUTO) 0.3 X10'3 (0-0.9); EOSINOPHILS % (AUTO) 3.2 % (0-6); HEMATOCRIT 31.2 % (42.0-52.0); HEMOGLOBIN 10.1 g/dl (14.0-17.9); LYMPHOCYTES # (AUTO) 1.5 X10'3 (1.1-4.8); LYMPHOCYTES % (AUTO) 14.7 % (21-51); MEAN CORPUSCULAR HEMOGLOBIN 26.4 PG (27.0-31.0); MEAN CORPUSCULAR HGB CONC 32.5 % (33.0-36.5); MEAN CORPUSCULAR VOLUME 81.2 FL (78-98); MEAN PLATELET VOLUME 8.2 FL (7.4-10.4); MONOCYTES # (AUTO) 0.9 X10'3 (0-0.9); MONOCYTES % (AUTO) 8.8 % (2-12); NEUTROPHILS # (AUTO) 7.5 X10'3 (1.8-7.7); NEUTROPHILS % (AUTO) 72.5 % (42-75); PLATELET COUNT 297 X10'3 (140-440); RED BLOOD COUNT 3.84 X10'6 (4.70-6.10); RED CELL DISTRIBUTION WIDTH 17.9 % (11.5-14.5); WHITE BLOOD COUNT 10.3 X10'3 (4.5-11.0)
[2017-09-05 07:20] VITALS: BP 126/86
[2017-09-05] MEDS: levoTHYROXINE 25mcg tablet PO SCH (07:34)
[2017-09-05] MEDS: CefTRIAXone/D5W-Rocephin 1gm 50 ML IV SCH (07:35)
[2017-09-05] MEDS: lactobacillus rhamnosus 10,000 MMU CELLS/CAPSULE PO SCH ×2 (07:36→20:23)
[2017-09-05] MEDS: normal saline 1000ml 1,000 ML IV SCH (07:37)
[2017-09-05] MEDS: nicotine 14mg patch - 24hr TD SCH (07:37)
[2017-09-05] MEDS: K and/or MAG REPLACEMENT MC SCH (07:43)
[2017-09-05 11:02] VITALS: BP 124/89
[2017-09-05 14:17] LABS: BASOPHILS # (AUTO) 0.1 X10'3 (0-0.2); BASOPHILS % (AUTO) 0.8 % (0-1); EOSINOPHILS # (AUTO) 0.3 X10'3 (0-0.9); EOSINOPHILS % (AUTO) 2.9 % (0-6); HEMATOCRIT 35.4 % (42.0-52.0); HEMOGLOBIN 11.5 g/dl (14.0-17.9); LYMPHOCYTES # (AUTO) 1.5 X10'3 (1.1-4.8); LYMPHOCYTES % (AUTO) 14.2 % (21-51); MEAN CORPUSCULAR HEMOGLOBIN 26.9 PG (27.0-31.0); MEAN CORPUSCULAR HGB CONC 32.4 % (33.0-36.5); MEAN CORPUSCULAR VOLUME 82.9 FL (78-98); MEAN PLATELET VOLUME 8.6 FL (7.4-10.4); MONOCYTES # (AUTO) 0.8 X10'3 (0-0.9); MONOCYTES % (AUTO) 7.7 % (2-12); NEUTROPHILS % (AUTO) 74.4 % (42-75); PLATELET COUNT 300 X10'3 (140-440); RED BLOOD COUNT 4.27 X10'6 (4.70-6.10); RED CELL DISTRIBUTION WIDTH 17.7 % (11.5-14.5); WHITE BLOOD COUNT 10.7 X10'3 (4.5-11.0)
[2017-09-05 19:15] VITALS: BP_SYST 134; BP_SYST 139; BP_DIAS 88; BP_DIAS 96; BP_DIAS 98
[2017-09-05] MEDS: pantoprazole 40mg Tablet.DR PO SCH (20:23)
[2017-09-06] VITALS: BP 122/86
[2017-09-06] MEDS: morphine 2 MG/ML inj. syringe IV PRN (02:39)
[2017-09-06 05:14] LABS: BASOPHILS # (AUTO) 0.1 X10'3 (0-0.2); BASOPHILS % (AUTO) 0.4 % (0-1); EOSINOPHILS # (AUTO) 0.3 X10'3 (0-0.9); EOSINOPHILS % (AUTO) 2.4 % (0-6); HEMATOCRIT 30.9 % (42.0-52.0); LYMPHOCYTES # (AUTO) 1.2 X10'3 (1.1-4.8); LYMPHOCYTES % (AUTO) 9.6 % (21-51); MEAN CORPUSCULAR HEMOGLOBIN 26.6 PG (27.0-31.0); MEAN CORPUSCULAR HGB CONC 32.4 % (33.0-36.5); MEAN CORPUSCULAR VOLUME 82.1 FL (78-98); MEAN PLATELET VOLUME 8.2 FL (7.4-10.4); MONOCYTES # (AUTO) 0.9 X10'3 (0-0.9); MONOCYTES % (AUTO) 7.8 % (2-12); NEUTROPHILS # (AUTO) 9.6 X10'3 (1.8-7.7); NEUTROPHILS % (AUTO) 79.8 % (42-75); PLATELET COUNT 316 X10'3 (140-440); RED BLOOD COUNT 3.76 X10'6 (4.70-6.10); RED CELL DISTRIBUTION WIDTH 18.5 % (11.5-14.5); WHITE BLOOD COUNT 12.1 X10'3 (4.5-11.0)
[2017-09-06 05:37] LABS: ALANINE AMINOTRANSFERASE 17 U/L (12-78); ALBUMIN 1.8 G/DL (3.4-5.0); ALBUMIN/GLOBULIN RATIO 0.4 (1.1-1.5); ALKALINE PHOSPHATASE 151 IU/L (46-116); ANION GAP 7 (8-16); ASPARTATE AMINO TRANSFERASE 40 U/L (10-37); BILIRUBIN,TOTAL 1.7 MG/DL (0.1-1.0); BLOOD UREA NITROGEN 17 MG/DL (7-18); BUN/CREATININE RATIO 16.8 (5.4-32.0); CALCIUM 7.7 MG/DL (8.5-10.1); CHLORIDE 104 MMOL/L (99-107); CREATININE 1.01 MG/DL (0.60-1.10); GLUCOSE 88 MG/DL (70-104); MAGNESIUM 1.5 MG/DL (1.5-2.4); SODIUM 134 MMOL/L (135-145); TOTAL PROTEIN 6.8 G/DL (6.4-8.2); eGFR 79 ML/MIN
[2017-09-06] MEDS: levoTHYROXINE 25mcg tablet PO SCH (07:16)
[2017-09-06] MEDS: CefTRIAXone/D5W-Rocephin 1gm 50 ML IV SCH (07:17)
[2017-09-06] MEDS: pantoprazole 40mg Tablet.DR PO SCH (07:17)
[2017-09-06] MEDS: lactobacillus rhamnosus 10,000 MMU CELLS/CAPSULE PO SCH (07:17)
[2017-09-06] MEDS: nicotine 14mg patch - 24hr TD SCH (07:24)
[2017-09-06 07:31] VITALS: BP 133/88
[2017-09-06] MEDS: K and/or MAG REPLACEMENT MC SCH (07:55)
[2017-09-06 08:02] VITALS: BP_SYST 124; BP_SYST 129; BP_SYST 133; BP_DIAS 88
[2017-09-06] MEDS ORDERED: LIDOcaine 0.5% (5mg/ml) 50ml vial ONE (08:48)
[2017-09-06 08:50] VITALS: BP 122/88
[2017-09-06] MEDS ORDERED: albumin (human) 25% 100 ML IV solution IV ONE ×2 (09:20→10:10)
[2017-09-06] MEDS ORDERED: oxyCODONE/APAP 5-325mg tablet PO PRN (09:25)
[2017-09-06 10:03] VITALS: BP 109/70
[2017-09-06] MEDS ORDERED: oxyCODONE IR 5mg (immed. release) tablet PO PRN (10:45)
[2017-09-06 11:21] LABS: BASOPHILS % (AUTO) 0.5 % (0-1); EOSINOPHILS # (AUTO) 0.2 X10'3 (0-0.9); EOSINOPHILS % (AUTO) 2.5 % (0-6); HEMATOCRIT 26.8 % (42.0-52.0); HEMOGLOBIN 8.8 g/dl (14.0-17.9); LYMPHOCYTES # (AUTO) 0.9 X10'3 (1.1-4.8); LYMPHOCYTES % (AUTO) 10.1 % (21-51); MEAN CORPUSCULAR HEMOGLOBIN 26.9 PG (27.0-31.0); MEAN CORPUSCULAR HGB CONC 32.9 % (33.0-36.5); MEAN CORPUSCULAR VOLUME 81.7 FL (78-98); MEAN PLATELET VOLUME 7.7 FL (7.4-10.4); MONOCYTES # (AUTO) 0.7 X10'3 (0-0.9); MONOCYTES % (AUTO) 7.8 % (2-12); NEUTROPHILS # (AUTO) 7.3 X10'3 (1.8-7.7); NEUTROPHILS % (AUTO) 79.1 % (42-75); PLATELET COUNT 282 X10'3 (140-440); RED BLOOD COUNT 3.28 X10'6 (4.70-6.10); RED CELL DISTRIBUTION WIDTH 18.2 % (11.5-14.5); WHITE BLOOD COUNT 9.2 X10'3 (4.5-11.0)
[2017-09-06 11:49] VITALS: BP 99/59
[2017-09-06 12:07] LABS: ANISOCYTOSIS 2+; PLATELET ESTIMATE NORMAL; POIKILOCYTOSIS 1+; POLYCHROMASIA 1+; TEAR DROP CELLS FEW
== END 2017-09-06 15:30 | disposition home or self-care (01) | DRG 377 ==
LOC: ER 09:40 → ED HOLD 10:34 → EDBEDREQ 12:17 → SUR 3N 13:52
PROVIDERS: ADMIT Internal Medicine; ATTEND Internal Medicine
PROC: 30233N1 Transfusion of Nonautologous Red Blood Cells into Peripheral Vein, Percutaneous Approach (ICD-10-PCS; 2017-09-03)
PROC: 0DJ08ZZ Inspection of Upper Intestinal Tract, Via Natural or Artificial Opening Endoscopic (ICD-10-PCS; 2017-09-03)
PROC: 0W9G3ZZ Drainage of Peritoneal Cavity, Percutaneous Approach (ICD-10-PCS; principal; 2017-09-06)
DX: K29.71 Gastritis, unspecified, with bleeding (principal); Q39.4 Esophageal web; D68.9 Coagulation defect, unspecified; I24.8 Other forms of acute ischemic heart disease; N17.9 Acute kidney failure, unspecified; N39.0 Urinary tract infection, site not specified; D50.0 Iron deficiency anemia secondary to blood loss (chronic); I85.00 Esophageal varices without bleeding; E03.9 Hypothyroidism, unspecified; E83.42 Hypomagnesemia; E87.6 Hypokalemia; F17.200 Nicotine dependence, unspecified, uncomplicated; K70.31 Alcoholic cirrhosis of liver with ascites; K76.0 Fatty (change of) liver, not elsewhere classified; K44.9 Diaphragmatic hernia without obstruction or gangrene; K22.2 Esophageal obstruction; N18.9 Chronic kidney disease, unspecified; Z79.899 Other long term (current) drug therapy; Z82.49 Family history of ischemic heart disease and other diseases of the circulatory system; Z88.5 Allergy status to narcotic agent
CPT/HCPCS: 36415; 49083; 71045; 76705; 80053; 80061; 81001; 82140; 82272; 83735; 84145; 84443; 84484; 85025; 85610; 85730; 86885; 86900; 86901; 86920; 87070; 87088; 93005; 93306; 99291; C9113; G0500; J0696; J2001; J2250; J2270; J2354; J3010; J3480; J7030; P9016; P9047

== ENCOUNTER 2017-12-13 10:54 | Emergency (ER) | payer MEDICAID ==
[~2017-12-13] VITALS: Ht 185.4 cm; Wt 72.7 kg
[~2017-12-13 10:54] MED LIST changes: -LEVO25TA7 PO; +LEVO50TA8 PO; +PANT40TA4 PO; -potassium PO
[2017-12-13 11:12] VITALS: BP 98/70
[2017-12-13 11:51] LABS: BASOPHILS % (AUTO) 0.5 % (0-1); EOSINOPHILS # (AUTO) 0.3 X10'3 (0-0.9); EOSINOPHILS % (AUTO) 3.8 % (0-6); HEMATOCRIT 28.6 % (42.0-52.0); HEMOGLOBIN 9.2 g/dl (14.0-17.9); LYMPHOCYTES # (AUTO) 0.9 X10'3 (1.1-4.8); LYMPHOCYTES % (AUTO) 11.1 % (21-51); MEAN CORPUSCULAR HEMOGLOBIN 26.1 PG (27.0-31.0); MEAN CORPUSCULAR HGB CONC 32.2 % (33.0-36.5); MEAN CORPUSCULAR VOLUME 81.1 FL (78-98); MEAN PLATELET VOLUME 8.3 FL (7.4-10.4); MONOCYTES # (AUTO) 0.5 X10'3 (0-0.9); MONOCYTES % (AUTO) 6.8 % (2-12); NEUTROPHILS # (AUTO) 6.3 X10'3 (1.8-7.7); NEUTROPHILS % (AUTO) 77.8 % (42-75); PLATELET COUNT 310 X10'3 (140-440); RED BLOOD COUNT 3.53 X10'6 (4.70-6.10); RED CELL DISTRIBUTION WIDTH 22.9 % (11.5-14.5); WHITE BLOOD COUNT 8.1 X10'3 (4.5-11.0)
[2017-12-13 12:05] LABS: ANION GAP 7 (8-16); CHLORIDE 107 MMOL/L (99-107); GLUCOSE 87 MG/DL (70-104); SODIUM 140 MMOL/L (135-145); TOTAL CARBON DIOXIDE 26.3 MMOL/L (24-32)
[2017-12-13 12:06] LABS: ALANINE AMINOTRANSFERASE 22 U/L (12-78); ALBUMIN 2.4 G/DL (3.4-5.0); ALBUMIN/GLOBULIN RATIO 0.4 (1.1-1.5); ALKALINE PHOSPHATASE 338 IU/L (46-116); ASPARTATE AMINO TRANSFERASE 36 U/L (10-37); BILIRUBIN,TOTAL 0.4 MG/DL (0.1-1.0); BLOOD UREA NITROGEN 22 MG/DL (7-18); BUN/CREATININE RATIO 21.8 (5.4-32.0); CALCIUM 9.2 MG/DL (8.5-10.1); CREATININE 1.01 MG/DL (0.60-1.10); INR 1.3 INR; PARTIAL THROMBOPLASTIN TIME 32 SECONDS (22-32); PROTHROMBIN TIME 12.8 SECONDS (9.0-12.0); TOTAL PROTEIN 8.1 G/DL (6.4-8.2); eGFR 79 ML/MIN
== END 2017-12-13 12:16 | disposition home or self-care (01) ==
LOC: ER 10:54
DX: K70.31 Alcoholic cirrhosis of liver with ascites (principal); Z79.899 Other long term (current) drug therapy
CPT/HCPCS: 36415; 80053; 85025; 85610; 85730; 99284

== ENCOUNTER 2017-12-24 08:10 | Day surgery (SDC) | payer MEDICAID ==
[2017-12-24] VITALS (11 sets, daily range): BP systolic 88–116; BP diastolic 56–89
[~2017-12-24] VITALS: Ht 185.4 cm; Wt 73.8 kg
[2017-12-24] MEDS ORDERED: normal saline 1000ml 1,000 ML IV PRN (08:25)
[2017-12-24] MEDS ORDERED: DOCU-28 PO (08:35)
[2017-12-24] MEDS ORDERED: ERGO500041 PO (08:35)
[2017-12-24] MEDS ORDERED: SUCR1TAB34 PO (08:35)
[2017-12-24] MEDS ORDERED: ciprofloxacin PO (08:35)
[2017-12-24] MEDS ORDERED: ESOM40CA30 PO (08:35)
[2017-12-24] MEDS ORDERED: FURO-149 PO (08:35)
[2017-12-24] MEDS ORDERED: ACET-2119 PO (08:35)
[2017-12-24] MEDS ORDERED: FERR325T28 PO (08:35)
[2017-12-24] MEDS ORDERED: SPIR100T5 PO (08:35)
[2017-12-24] MEDS ORDERED: NICO-687 TOP (08:35)
[2017-12-24] MEDS ORDERED: LIDOcaine 1% 30ml preserv. free vial SQ ONE (09:30)
[2017-12-24] MEDS: albumin (human) 25% 100 ML IV solution IV PRN ×2 (10:15→10:31)
== END 2017-12-24 11:05 | disposition home or self-care (01) ==
LOC: SSTAY O 08:10
PROVIDERS: ATTEND Radiology Diagnostic Radiology
DX: K70.31 Alcoholic cirrhosis of liver with ascites (principal); E87.6 Hypokalemia; E43 Unspecified severe protein-calorie malnutrition; K72.90 Hepatic failure, unspecified without coma; F17.210 Nicotine dependence, cigarettes, uncomplicated; F10.21 Alcohol dependence, in remission; F41.8 Other specified anxiety disorders; H91.8X3 Other specified hearing loss, bilateral; Z79.2 Long term (current) use of antibiotics; Z88.5 Allergy status to narcotic agent; Z79.891 Long term (current) use of opiate analgesic; Z68.21 Body mass index [BMI] 21.0-21.9, adult; Z87.19 Personal history of other diseases of the digestive system; Z90.89 Acquired absence of other organs; Z98.890 Other specified postprocedural states; Z79.899 Other long term (current) drug therapy; Z82.49 Family history of ischemic heart disease and other diseases of the circulatory system
CPT/HCPCS: 49083; J3490; J7030; P9047

== ENCOUNTER 2021-03-19 07:44 | Inpatient (IN) | payer MEDICAID ==
[2021-03-19] VITALS (9 sets, daily range): BP systolic 110–162; BP diastolic 56–97
[~2021-03-19] VITALS: Ht 185.4 cm; Wt 75.2 kg
[~2021-03-19 07:44] MED LIST changes: +ACET-2119 PO; +DOCU-28 PO; +ERGO500041 PO; +ESOM40CA49 PO; +FERR325T28 PO; +FURO-149 PO; +NICO-687 TOP; -PANT40TA4 PO; +SPIR100T5 PO; -SPIR25TA5 PO; +SUCR1TAB34 PO; +ciprofloxacin PO
[2021-03-19 08:54] LABS: BASOPHILS # (AUTO) 0.1 X10'3 (0-0.2); BASOPHILS % (AUTO) 0.9 % (0-1); EOSINOPHILS # (AUTO) 0.2 X10'3 (0-0.9); EOSINOPHILS % (AUTO) 3.4 % (0-6); HEMATOCRIT 35.5 % (42.0-52.0); LYMPHOCYTES # (AUTO) 1.3 X10'3 (1.1-4.8); LYMPHOCYTES % (AUTO) 18.5 % (21-51); MEAN CORPUSCULAR HEMOGLOBIN 29.7 PG (27.0-31.0); MEAN CORPUSCULAR HGB CONC 33.8 g/dL (33.0-36.5); MEAN CORPUSCULAR VOLUME 87.7 FL (78-98); MEAN PLATELET VOLUME 8.7 FL (7.4-10.4); MONOCYTES # (AUTO) 0.6 X10'3 (0-0.9); MONOCYTES % (AUTO) 7.6 % (2-12); NEUTROPHILS % (AUTO) 69.6 % (42-75); PLATELET COUNT 289 X10'3 (140-440); RED BLOOD COUNT 4.05 X10'6 (4.70-6.10); WHITE BLOOD COUNT 7.2 X10'3 (4.5-11.0)
[2021-03-19 09:17] LABS: ALANINE AMINOTRANSFERASE 37 U/L (12-78); ALBUMIN 2.5 G/DL (3.4-5.0); ALBUMIN/GLOBULIN RATIO 0.4 (1.1-1.5); ALKALINE PHOSPHATASE 153 IU/L (46-116); ANION GAP 11 (8-16); ASPARTATE AMINO TRANSFERASE 49 U/L (10-37); BILIRUBIN,TOTAL 0.5 MG/DL (0.1-1.0); BLOOD UREA NITROGEN 15 MG/DL (7-18); BUN/CREATININE RATIO 17.2 (5.4-32.0); CALCIUM 8.8 MG/DL (8.5-10.1); CHLORIDE 105 MMOL/L (99-107); CREATININE 0.87 MG/DL (0.60-1.10); GLUCOSE 115 MG/DL (70-104); POTASSIUM 3.3 MMOL/L (3.5-5.1); SODIUM 139 MMOL/L (135-145); TOTAL CARBON DIOXIDE 22.7 MMOL/L (24-32); TOTAL PROTEIN 8.5 G/DL (6.4-8.2); eGFR > 90 ML/MIN
[2021-03-19 09:19] LABS: LIPASE 355 U/L (73-393)
[2021-03-19] MEDS ORDERED: potassium Cl 20 mEq SR tablet PO STA (10:19)
[2021-03-19] MEDS ORDERED: ondansetron/PF 4mg/2ml inj IV ONE (10:35)
[2021-03-19] MEDS ORDERED: morphine 4 MG/ML inj SYRINge IV PRN ×2 (10:35→11:40)
[2021-03-19] MEDS ORDERED: normal saline 1000ML IV soln IVB ONE (10:35)
[2021-03-19] MEDS ORDERED: morphine 2 MG/ML inj. syringe IV PRN ×3 (11:40→21:30)
[2021-03-19] MEDS ORDERED: fentaNYL/PF 50MCG/1 ML 2ML syringe IV PRN ×2 (11:40)
[2021-03-19] MEDS ORDERED: ondansetron/PF 4mg/2ml inj IV PRN ×2 (11:40→21:30)
[2021-03-19] MEDS ORDERED: ringers solution, lacted 1,000 ML IV SCH (11:40)
[2021-03-19] MEDS ORDERED: hydrALAZINE 20mg/ml inj. IV PRN (11:40)
[2021-03-19] MEDS ORDERED: labetalol 20mg/4ml (5mg/ml) syringe IV PRN (11:40)
[2021-03-19] MEDS ORDERED: ondansetron/PF 4mg/2ml inj ONE (12:46)
[2021-03-19] MEDS ORDERED: MIDAZolam 1 MG/ML 5ML VIAL ONE (12:46)
[2021-03-19] MEDS ORDERED: etomidate 2mg/ml inj. ONE ×2 (12:46→12:50)
[2021-03-19] MEDS ORDERED: fentaNYL/PF 50MCG/1 ML 2ML syringe ONE ×2 (12:46→14:05)
[2021-03-19] MEDS ORDERED: rocuronium 10mg/ml inj IV ONE (12:46)
[2021-03-19] MEDS ORDERED: neostigmine methylsulfate 1 MG/ML 10ml vial ONE (12:50)
[2021-03-19] MEDS ORDERED: sevoflurane 250ml liquid IH ONE (12:50)
[2021-03-19] MEDS ORDERED: dexamethasone sod phosphate 10mg/ml inj ONE (12:50)
[2021-03-19] MEDS ORDERED: ceFAZolin 1000mg inj ONE ×2 (13:02)
[2021-03-19] MEDS ORDERED: albumin (Human) 5% 250ml 250 ML IV ONE (14:04)
[2021-03-19] MEDS ORDERED: glycopyrrolate 0.2mg/ml inj ONE (14:30)
--- NOTE | 2021-03-19 14:41 | NUR ---
Received from OR via BED. 20G TO RIGHT AC, COLOSTOMY SITE PINK AND BLOODY DRAINING SML AMT OF BLOOD, DRESSING TO LEFT ABD WITH SCANT AMT OF DRAINAGE. PT WITH LMA AND MASK O2 SAT 100% , accompanied by Anesthesiologist DR REEVES and report given by Anesthesiolgist AND SECURITY SHIFT SUPERVISORNAFISA FARIAS. Addendum: 03/19/21 at 1512 by Lolis Arana RN Amended: Links added.
--- NOTE | 2021-03-19 15:41 | NUR ---
PATIENT TAKEN TO ROOM WITH ALL BELONGINGS AND HOOKED UP TO MONITORS IN ROOM AND GIVEN CALL LIGHT, REPORT GIVEN TO RN WHO HAS TAKEN OVER PATIENT CARE. Addendum: 03/19/21 at 1605 by Lolis Arana RN Amended: Links added.
--- NOTE | 2021-03-19 16:03 | NUR ---
Received patient to room 355A. x1 belongings bag and a black duffel bag with patient. Oriented patient to room and call light. Call light placed within patient's reach. Patient using urinal.
--- NOTE | 2021-03-19 16:36 | NUR ---
Patient refuses to have physical assessment at this time or to look at surgical site. Patient states he needs to void and has urinal. Will continue to monitor.
[2021-03-19] MEDS ORDERED: HYDROcodone/acetaminophen 5mg/325mg tablet PO PRN ×2 (16:45→21:30)
[2021-03-19] MEDS ORDERED: magnesium Cl slow-release 64mg tablet PO PRN ×2 (17:10→21:30)
[2021-03-19] MEDS ORDERED: magnesium 2GM in 50ml NS 50 ML IV PRN ×2 (17:10→21:30)
[2021-03-19] MEDS ORDERED: potassium CL 10mEq/100ml bag 100 ML IV PRN ×2 (17:10→21:30)
[2021-03-19] MEDS ORDERED: magnesium 4gm in 100ml NS 100 ML IV PRN ×2 (17:10→21:30)
[2021-03-19] MEDS ORDERED: potassium Cl 20 mEq SR tablet PO PRN ×3 (17:10→21:30)
--- NOTE | 2021-03-19 18:05 | NUR ---
Problems reprioritized. Patient report given, questions answered & plan of care reviewed with NAFISA Candelaria.
[2021-03-19] MEDS: HYDROcodone/acetaminophen 10/325mg tab PO PRN ×2 (18:10→22:18)
[2021-03-19 19:58] LABS: CLARITY,URINE SLIGHTLY CLOUDY (Clear); COLOR,URINE YELLOW (Yellow); GLUCOSE, URINE NEGATIVE (Neg); KETONES,URINE NEGATIVE (Neg); LEUKOCYTE ESTERASE ,URINE NEGATIVE (Neg); NITRITES, URINE NEGATIVE (Neg); OCCULT BLOOD,URINE NEGATIVE (Neg); PROTEIN,URINE TRACE mg/dl (Neg); UROBILINOGEN,URINE 0.2 E.U/dL (0.2-1.0)
[2021-03-19] MEDS ORDERED: K and/or MAG REPLACEMENT MC SCH (20:00)
[2021-03-19 20:05] LABS: UA COLLECTION TYPE NON-SPECIFIED
[2021-03-19 20:06] LABS: MUCUS STRANDS MODERATE /LPF (Neg); RENAL CELLS, URINE FEW /HPF; SQUAMOUS EPITHELIAL CELL,UR MODERATE /LPF (FEW)
[2021-03-19 20:10] LABS: COARSE GRANULAR CAST 0-3 /LPF (NEGATIVE)
[2021-03-19 20:11] LABS: BACTERIA,URINE NONE SEEN /HPF (Neg); RBC,URINE 0-2 /HPF (0-2); WBC,URINE 0-4 /HPF (0-4)
[2021-03-19] MEDS ORDERED: HYDROcodone/acetaminophen 10/325mg tab PO PRN (21:30)
[2021-03-19] MEDS ORDERED: diphenhydrAMINE 25mg capsule PO PRN (21:30)
[2021-03-19] MEDS ORDERED: bisacodyl 10mg suppository rectal RC PRN (21:30)
[2021-03-19] MEDS ORDERED: acetaminophen 325mg tablet PO PRN ×2 (21:30)
[2021-03-19] MEDS ORDERED: acetaminophen 650mg rectal suppository RC PRN (21:30)
[2021-03-19] MEDS ORDERED: magnesium hydroxide 30ml (MOM) UD suspension PO PRN (21:30)
[2021-03-19] MEDS: potassium Cl 20 mEq SR tablet PO PRN (22:17)
[2021-03-19] MEDS: normal saline 1000ml 1,000 ML IV SCH (22:22)
[2021-03-20] VITALS: BP 104/62
[2021-03-20] MEDS: potassium Cl 20 mEq SR tablet PO PRN (02:31)
[2021-03-20] MEDS: HYDROcodone/acetaminophen 10/325mg tab PO PRN ×6 (02:32→23:43)
[2021-03-20 06:04] LABS: BASOPHILS % (AUTO) 0.2 % (0-1); EOSINOPHILS % (AUTO) 0.1 % (0-6); HEMATOCRIT 28.9 % (42.0-52.0); HEMOGLOBIN 9.7 g/dl (14.0-17.9); LYMPHOCYTES # (AUTO) 0.9 X10'3 (1.1-4.8); LYMPHOCYTES % (AUTO) 9.4 % (21-51); MEAN CORPUSCULAR HEMOGLOBIN 29.7 PG (27.0-31.0); MEAN CORPUSCULAR HGB CONC 33.5 g/dL (33.0-36.5); MEAN CORPUSCULAR VOLUME 88.5 FL (78-98); MONOCYTES # (AUTO) 0.5 X10'3 (0-0.9); MONOCYTES % (AUTO) 5.3 % (2-12); NEUTROPHILS # (AUTO) 7.7 X10'3 (1.8-7.7); PLATELET COUNT 205 X10'3 (140-440); RED BLOOD COUNT 3.27 X10'6 (4.70-6.10); RED CELL DISTRIBUTION WIDTH 14.9 % (11.5-14.5); WHITE BLOOD COUNT 9.1 X10'3 (4.5-11.0)
--- NOTE | 2021-03-20 06:16 | NUR ---
Problems reprioritized. Patient report given, questions answered & plan of care reviewed with Gilda SKELTON and NAFISA Bella.
[2021-03-20 06:40] LABS: ALANINE AMINOTRANSFERASE 32 U/L (12-78); ALBUMIN 2.2 G/DL (3.4-5.0); ALBUMIN/GLOBULIN RATIO 0.5 (1.1-1.5); ALKALINE PHOSPHATASE 124 IU/L (46-116); ANION GAP 11 (8-16); ASPARTATE AMINO TRANSFERASE 41 U/L (10-37); BILIRUBIN,TOTAL 0.4 MG/DL (0.1-1.0); BLOOD UREA NITROGEN 15 MG/DL (7-18); BUN/CREATININE RATIO 20.5 (5.4-32.0); CALCIUM 8.2 MG/DL (8.5-10.1); CHLORIDE 108 MMOL/L (99-107); CREATININE 0.73 MG/DL (0.60-1.10); GLUCOSE 130 MG/DL (70-104); MAGNESIUM 1.6 MG/DL (1.5-2.4); PHOSPHORUS 2.4 MG/DL (2.3-4.5); POTASSIUM 4.7 MMOL/L (3.5-5.1); SODIUM 140 MMOL/L (135-145); TOTAL CARBON DIOXIDE 21.4 MMOL/L (24-32); TOTAL PROTEIN 6.8 G/DL (6.4-8.2); eGFR > 90 ML/MIN
[2021-03-20 07:00] VITALS: BP 113/61
--- NOTE | 2021-03-20 07:01 | NUR ---
Patient in room [facility]. I have received report from Teagan and had the opportunity to ask questions and assume patient care.
[2021-03-20] MEDS: K and/or MAG REPLACEMENT MC SCH ×2 (08:00→20:50)
[2021-03-20] MEDS: normal saline 1000ml 1,000 ML IV SCH ×2 (08:01→17:22)
[2021-03-20] MEDS: docusate sod 100mg capsule PO SCH ×2 (08:41→19:25)
[2021-03-20] MEDS ORDERED: FLU VACC QS2021-22(6MOS UP)/PF 60 MCG/0.5 ML SYRINGE IM ONE (10:00)
[2021-03-20 11:00] VITALS: BP 113/71
[2021-03-20] MEDS ORDERED: SULF1TAB45 PO (11:21)
[2021-03-20] MEDS ORDERED: SPIR25TA5 PO (11:21)
[2021-03-20] MEDS ORDERED: OXYC10TA47 PO (11:21)
--- NOTE | 2021-03-20 14:17 | NUR ---
Re: pt in room [facility]. Dr Burnett states not surgically cleared for discharge, Pt has not had Bowel out put. Shayne SKELTON-Surgical Addendum: 03/20/21 at 1418 by Lucas Ledesma RN paged to Dr Johansen
--- NOTE | 2021-03-20 18:43 | NUR ---
Problems reprioritized. Patient report given, questions answered & plan of care reviewed with LAURA SANCHEZ.
--- NOTE | 2021-03-20 18:45 | NUR ---
Patient in room [facility]. I have received report from CHRISTIAN SKELTON AND MAVERICK SKELTON and had the opportunity to ask questions and assume patient care.
[2021-03-20] MEDS: mag hydrox/Alum hydrox/simeth 30ml oral suspension PO PRN (19:31)
[2021-03-20 20:00] VITALS: BP 147/80
[2021-03-21] VITALS: BP 113/72
[2021-03-21] MEDS: normal saline 1000ml 1,000 ML IV SCH ×2 (02:40→12:26)
[2021-03-21] MEDS: HYDROcodone/acetaminophen 10/325mg tab PO PRN ×4 (04:16→16:34)
--- NOTE | 2021-03-21 06:00 | NUR ---
Patient in room [facility]. I have received report from Yolis Lagos and had the opportunity to ask questions and assume patient care.
[2021-03-21 07:00] VITALS: BP 122/77
[2021-03-21 07:20] LABS: BASOPHILS % (AUTO) 0.5 % (0-1); EOSINOPHILS # (AUTO) 0.2 X10'3 (0-0.9); HEMATOCRIT 29.1 % (42.0-52.0); HEMOGLOBIN 9.7 g/dl (14.0-17.9); LYMPHOCYTES # (AUTO) 1.1 X10'3 (1.1-4.8); LYMPHOCYTES % (AUTO) 11.6 % (21-51); MEAN CORPUSCULAR HEMOGLOBIN 29.5 PG (27.0-31.0); MEAN CORPUSCULAR HGB CONC 33.3 g/dL (33.0-36.5); MEAN CORPUSCULAR VOLUME 88.7 FL (78-98); MEAN PLATELET VOLUME 9.1 FL (7.4-10.4); MONOCYTES # (AUTO) 0.5 X10'3 (0-0.9); MONOCYTES % (AUTO) 5.7 % (2-12); NEUTROPHILS # (AUTO) 7.4 X10'3 (1.8-7.7); NEUTROPHILS % (AUTO) 80.2 % (42-75); PLATELET COUNT 198 X10'3 (140-440); RED BLOOD COUNT 3.28 X10'6 (4.70-6.10); RED CELL DISTRIBUTION WIDTH 15.3 % (11.5-14.5); WHITE BLOOD COUNT 9.2 X10'3 (4.5-11.0)
[2021-03-21 07:48] LABS: ALANINE AMINOTRANSFERASE 32 U/L (12-78); ALBUMIN 2.2 G/DL (3.4-5.0); ALBUMIN/GLOBULIN RATIO 0.5 (1.1-1.5); ALKALINE PHOSPHATASE 122 IU/L (46-116); ANION GAP 9 (8-16); ASPARTATE AMINO TRANSFERASE 39 U/L (10-37); BILIRUBIN,TOTAL 0.5 MG/DL (0.1-1.0); BLOOD UREA NITROGEN 9 MG/DL (7-18); BUN/CREATININE RATIO 14.5 (5.4-32.0); CALCIUM 7.9 MG/DL (8.5-10.1); CHLORIDE 111 MMOL/L (99-107); CREATININE 0.62 MG/DL (0.60-1.10); GLUCOSE 86 MG/DL (70-104); MAGNESIUM 1.8 MG/DL (1.5-2.4); PHOSPHORUS 2.4 MG/DL (2.3-4.5); POTASSIUM 3.6 MMOL/L (3.5-5.1); SODIUM 143 MMOL/L (135-145); TOTAL PROTEIN 6.4 G/DL (6.4-8.2); eGFR > 90 ML/MIN
[2021-03-21] MEDS: docusate sod 100mg capsule PO SCH (07:54)
[2021-03-21] MEDS: K and/or MAG REPLACEMENT MC SCH (08:00)
--- NOTE | 2021-03-21 10:05 | NUR ---
Dr Johansen stated this pt may be discharged today only if cleared by Dr. Christian rivera. Primary RN, Shayne, and NAFISA Vo were notified.
[2021-03-21] MEDS: mag hydrox/Alum hydrox/simeth 30ml oral suspension PO PRN (10:24)
[2021-03-21 12:00] VITALS: BP 127/74
--- NOTE | 2021-03-21 17:00 | NUR ---
Pt dicharged, all instructions given, PIV removed. Ambulated with Staff to front where mom is picking him up
== END 2021-03-21 16:54 | disposition home health service (06) | DRG 223 ==
LOC: ER 07:44 → SUR 3N 19:25 → UNDOADMIN 19:25 → SUR 3N 21:33
PROVIDERS: ADMIT Surgery; ATTEND Surgery
PROC: 0DQM0ZZ Repair Descending Colon, Open Approach (ICD-10-PCS; principal; 2021-03-19 12:50)
PROC: 3E02340 Introduction of Influenza Vaccine into Muscle, Percutaneous Approach (ICD-10-PCS; 2021-03-20)
DX: K94.09 Other complications of colostomy (principal); K72.90 Hepatic failure, unspecified without coma; K74.60 Unspecified cirrhosis of liver; E03.9 Hypothyroidism, unspecified; Z20.822 Contact with and (suspected) exposure to COVID-19; F12.90 Cannabis use, unspecified, uncomplicated; F17.210 Nicotine dependence, cigarettes, uncomplicated; Y83.3 Surgical operation with formation of external stoma as the cause of abnormal reaction of the patient, or of later complication, without mention of misadventure at the time of the procedure; K21.9 Gastro-esophageal reflux disease without esophagitis; Z79.899 Other long term (current) drug therapy; Z82.49 Family history of ischemic heart disease and other diseases of the circulatory system; Z23 Encounter for immunization; Y92.89 Other specified places as the place of occurrence of the external cause
CPT/HCPCS: 36415; 80053; 81001; 83690; 83735; 84100; 85025; 87081; 87635; 99285; A4421; A4618; A7000; C9803; G0378; J0690; J1100; J2250; J2270; J2405; J2710; J3010; J3490; J7030; J7120; P9045

== ENCOUNTER 2023-07-28 05:01 | Inpatient (IN) | payer MEDICAID ==
[~2023-07-28] VITALS: Ht 185.4 cm; Wt 86.4 kg
[~2023-07-28 05:01] MED LIST changes: -ACET-2119 PO; -DOCU-28 PO; -ERGO500041 PO; -ESOM40CA49 PO; -FERR325T28 PO; -FURO-149 PO; -LEVO50TA8 PO; -NICO-687 TOP; +OXYC10TA47 PO; -SPIR100T5 PO; +SPIR25TA5 PO; -SUCR1TAB34 PO; -ciprofloxacin PO
[2023-07-28 05:37] LABS: BASOPHILS % (AUTO) 0.2 % (0-1); EOSINOPHILS # (AUTO) 0.3 X10'3 (0-0.9); EOSINOPHILS % (AUTO) 1.4 % (0-6); HEMATOCRIT 41.4 % (42.0-52.0); HEMOGLOBIN 14.2 g/dl (14.0-17.9); LYMPHOCYTES # (AUTO) 1.8 X10'3 (1.1-4.8); LYMPHOCYTES % (AUTO) 8.6 % (21-51); MEAN CORPUSCULAR HGB CONC 34.3 g/dL (33.0-36.5); MEAN CORPUSCULAR VOLUME 90.5 FL (78-98); MEAN PLATELET VOLUME 9.4 FL (7.4-10.4); MONOCYTES % (AUTO) 4.7 % (2-12); NEUTROPHILS % (AUTO) 85.1 % (42-75); PLATELET COUNT 151 X10'3 (140-440); RED BLOOD COUNT 4.57 X10'6 (4.70-6.10); RED CELL DISTRIBUTION WIDTH 14.1 % (11.5-14.5); WHITE BLOOD COUNT 21.2 X10'3 (4.5-11.0)
[2023-07-28 06:01] LABS: ANION GAP 11 (8-16); BLOOD UREA NITROGEN 14 MG/DL (7-18); CALCIUM 8.5 MG/DL (8.5-10.1); CHLORIDE 100 MMOL/L (99-107); GLUCOSE 127 MG/DL (70-104); PRO BRAIN NATRIURETIC PEPTIDE 215 PG/ML (0-125); SODIUM 139 MMOL/L (135-145); TOTAL CARBON DIOXIDE 27.8 MMOL/L (24-32); eCRCL 97 ML/MIN; eGFR 78 ML/MIN
[2023-07-28 06:03] LABS: POTASSIUM 2.7 MMOL/L (3.5-5.1)
[2023-07-28] MEDS: normal saline 1000ML IV soln IVB ONE (06:19)
[2023-07-28] MEDS ORDERED: magnesium 4gm in 100ml NS 100 ML IV PRN ×2 (06:25→11:05)
[2023-07-28] MEDS ORDERED: magnesium Cl slow-release 64mg tablet PO PRN ×2 (06:25→11:05)
[2023-07-28] MEDS ORDERED: potassium Cl 20 mEq SR tablet PO PRN ×3 (06:25→11:05)
[2023-07-28] MEDS ORDERED: magnesium 2GM in 50ml NS 50 ML IV PRN ×2 (06:25→11:05)
[2023-07-28] MEDS: morphine 2 MG/ML inj. syringe IV ONE (06:46)
[2023-07-28] MEDS: K and/or MAG REPLACEMENT MC SCH ×2 (07:08→20:00)
[2023-07-28] MEDS: potassium Cl 40MEQ/1/2NS 520ml 520 ML IV PRN (07:08)
[2023-07-28] MEDS ORDERED: iohexol 350MG/ML 100ml bottle IV ONE (07:16)
[2023-07-28 08:13] LABS: D-DIMER 0.75 MG/L FEU (0-0.50)
[2023-07-28] MEDS: CefTRIAXone 2gm/D5W 50ml BAG 50 ML IV ONE (09:33)
[2023-07-28] MEDS: azithromycin 250mg tablet PO ONE (09:33)
[2023-07-28 09:34] LABS: BILIRUBIN,URINE NEGATIVE (Neg); CLARITY,URINE CLOUDY (Clear); COLOR,URINE YELLOW (Yellow); GLUCOSE, URINE NEGATIVE (Neg); KETONES,URINE NEGATIVE (Neg); LEUKOCYTE ESTERASE ,URINE TRACE (Neg); NITRITES, URINE NEGATIVE (Neg); OCCULT BLOOD,URINE NEGATIVE (Neg); PH,URINE 7.5 (4.8-8.0); PROTEIN,URINE NEGATIVE (Neg)
[2023-07-28 09:46] LABS: UA COLLECTION TYPE CLN CATCH MIDSTREAM
[2023-07-28 09:47] LABS: AMORPHOUS PHOSPHATES 1+; WBC,URINE 20-30 /HPF (0-4)
[2023-07-28 09:48] LABS: BACTERIA,URINE 4+ /HPF (Neg); RBC,URINE NONE SEEN /HPF (0-2); SQUAMOUS EPITHELIAL CELL,UR NONE SEEN /LPF (FEW)
[2023-07-28] MEDS ORDERED: NO HOME MEDS (10:10)
[2023-07-28] MEDS ORDERED: potassium Cl 40MEQ/1/2NS 520ml 520 ML IV PRN (11:05)
[2023-07-28] MEDS ORDERED: acetaminophen 325mg tablet PO PRN (11:05)
[2023-07-28] MEDS: normal saline 1000ml 1,000 ML IV SCH (11:13)
[2023-07-28 11:23] LABS: MAGNESIUM 1.4 MG/DL (1.5-2.4); POTASSIUM 3.2 MMOL/L (3.5-5.1)
[2023-07-28] MEDS: HYDROcodone/acetaminophen 5mg/325mg tablet PO PRN (11:26)
[2023-07-28] MEDS: nicotine 21mg patch - 24 hr TD ONE (16:14)
[2023-07-28 19:55] VITALS: BP 144/86; PULSE 83; RESP 16; TEMP 97.9; O2SAT 96
[2023-07-28] MEDS: heparin, porcine 5000 units/ml vial SQ SCH (20:20)
[2023-07-28] MEDS: morphine 2 MG/ML inj. syringe IV PRN (20:21)
[2023-07-28] MEDS: ondansetron/PF 4mg/2ml inj IV PRN (21:56)
[2023-07-28 22:00] VITALS: BP 141/85; PULSE 80; RESP 16; TEMP 98.9; O2SAT 96
[2023-07-28] MEDS: LORazepam 0.5 MG tablet PO ONE (22:04)
[2023-07-29] VITALS (11 sets, daily range): BP systolic 114–147; BP diastolic 64–94; PULSE 78–106; RESP 12–18; TEMP 97.5–97.7; O2SAT 96–98
[2023-07-29 06:53] LABS: BASOPHILS % (AUTO) 0.5 % (0-1); EOSINOPHILS # (AUTO) 0.3 X10'3 (0-0.9); EOSINOPHILS % (AUTO) 3.2 % (0-6); HEMATOCRIT 39.1 % (42.0-52.0); HEMOGLOBIN 13.3 g/dl (14.0-17.9); LYMPHOCYTES # (AUTO) 1.2 X10'3 (1.1-4.8); LYMPHOCYTES % (AUTO) 13.3 % (21-51); MEAN CORPUSCULAR HEMOGLOBIN 31.3 PG (27.0-31.0); MEAN CORPUSCULAR HGB CONC 34.1 g/dL (33.0-36.5); MEAN CORPUSCULAR VOLUME 91.7 FL (78-98); MEAN PLATELET VOLUME 9.3 FL (7.4-10.4); MONOCYTES # (AUTO) 0.6 X10'3 (0-0.9); MONOCYTES % (AUTO) 6.3 % (2-12); NEUTROPHILS # (AUTO) 6.8 X10'3 (1.8-7.7); NEUTROPHILS % (AUTO) 76.7 % (42-75); PLATELET COUNT 110 X10'3 (140-440); RED BLOOD COUNT 4.26 X10'6 (4.70-6.10); RED CELL DISTRIBUTION WIDTH 13.8 % (11.5-14.5); WHITE BLOOD COUNT 8.9 X10'3 (4.5-11.0)
[2023-07-29 07:02] LABS: ALBUMIN 2.6 G/DL (3.4-5.0); ANION GAP 10 (8-16); BLOOD UREA NITROGEN 14 MG/DL (7-18); BUN/CREATININE RATIO 17.1 (10.0-20.0); CHLORIDE 107 MMOL/L (99-107); CREATININE 0.82 MG/DL (0.60-1.10); GLUCOSE 100 MG/DL (70-104); MAGNESIUM 1.5 MG/DL (1.5-2.4); POTASSIUM 3.4 MMOL/L (3.5-5.1); SODIUM 141 MMOL/L (135-145); TOTAL CARBON DIOXIDE 23.8 MMOL/L (24-32); eCRCL 118 ML/MIN; eGFR > 90 ML/MIN
[2023-07-29] MEDS ORDERED: PERFLUTREN PROTEIN-A MICROSPHR (Optison) 0.22 MG/ML 3ML VIAL IV ONE (08:10)
[2023-07-29] MEDS: potassium Cl 20 mEq SR tablet PO PRN (08:30)
[2023-07-29] MEDS: CefTRIAXone/D5W-Rocephin 1gm 50 ML IV SCH (09:23)
[2023-07-29] MEDS ORDERED: metoprolol tartrate 1mg/ml inj IV PRN (10:30)
[2023-07-29] MEDS ORDERED: aminophylline 250mg/10ml inj. IV PRN (10:30)
[2023-07-29] MEDS ORDERED: nitroGLYCERIN 0.4mg SUBLingual tab SL PRN (10:30)
[2023-07-29] MEDS: regadenoson 0.4mg/5ml syringe IV PRN (13:34)
[2023-07-29] MEDS ORDERED: PANT-47 PO (15:27)
[2023-07-29] MEDS ORDERED: POTA-207 PO (15:36)
== END 2023-07-29 16:09 | disposition home or self-care (01) | DRG 203 ==
LOC: ER 05:01 → ED HOLD 11:07 → ORTHO 4S 20:01
PROVIDERS: ADMIT Internal Medicine; ATTEND Internal Medicine
PROC: B32T1ZZ Computerized Tomography (CT Scan) of Left Pulmonary Artery using Low Osmolar Contrast (ICD-10-PCS; principal; 2023-07-28)
PROC: B3201ZZ Computerized Tomography (CT Scan) of Thoracic Aorta using Low Osmolar Contrast (ICD-10-PCS; 2023-07-28)
PROC: B32S1ZZ Computerized Tomography (CT Scan) of Right Pulmonary Artery using Low Osmolar Contrast (ICD-10-PCS; 2023-07-28)
PROC: 4A02XM4 Measurement of Cardiac Total Activity, External Approach (ICD-10-PCS; 2023-07-29)
PROC: 3E033HZ Introduction of Radioactive Substance into Peripheral Vein, Percutaneous Approach (ICD-10-PCS; 2023-07-29)
DX: R07.89 Other chest pain (principal); K74.60 Unspecified cirrhosis of liver; D72.823 Leukemoid reaction; D72.829 Elevated white blood cell count, unspecified; E87.6 Hypokalemia; K20.90 Esophagitis, unspecified without bleeding
CPT/HCPCS: 36415; 71045; 71275; 78452; 80048; 81001; 83605; 83735; 83880; 84132; 84145; 84484; 85025; 85379; 87040; 87077; 87081; 87088; 87186; 93005; 93017; 93306; 96365; 96375; 99285; A9500; G0378; J0696; J1644; J2270; J2405; J2785; J3480; J3490; J7030; Q9967

== ENCOUNTER 2023-10-13 03:03 | Emergency (ER) | payer MEDICARE, MEDICAID ==
[~2023-10-13] VITALS: Ht 185.4 cm; Wt 84.1 kg
[~2023-10-13 03:03] MED LIST changes: -OXYC10TA47 PO; +PANT-47 PO; +POTA-207 PO; -SPIR25TA5 PO
[2023-10-13 03:18] VITALS: TEMP 98.9
[2023-10-13] MEDS: normal saline 1000ml 1,000 ML IV ONE (03:43)
[2023-10-13 04:04] LABS: BASOPHILS % (AUTO) 0.6 % (0-1); EOSINOPHILS # (AUTO) 0.3 X10'3 (0-0.9); EOSINOPHILS % (AUTO) 4.6 % (0-6); HEMATOCRIT 50.1 % (42.0-52.0); LYMPHOCYTES # (AUTO) 2.2 X10'3 (1.1-4.8); LYMPHOCYTES % (AUTO) 32.4 % (21-51); MEAN CORPUSCULAR HEMOGLOBIN 32.3 PG (27.0-31.0); MEAN CORPUSCULAR HGB CONC 33.9 g/dL (33.0-36.5); MEAN CORPUSCULAR VOLUME 95.3 FL (78-98); MEAN PLATELET VOLUME 9.5 FL (7.4-10.4); MONOCYTES # (AUTO) 0.6 X10'3 (0-0.9); MONOCYTES % (AUTO) 8.5 % (2-12); NEUTROPHILS # (AUTO) 3.6 X10'3 (1.8-7.7); NEUTROPHILS % (AUTO) 53.9 % (42-75); PLATELET COUNT 119 X10'3 (140-440); RED BLOOD COUNT 5.26 X10'6 (4.70-6.10); RED CELL DISTRIBUTION WIDTH 15.6 % (11.5-14.5); WHITE BLOOD COUNT 6.7 X10'3 (4.5-11.0)
[2023-10-13 04:09] LABS: ALANINE AMINOTRANSFERASE 101 U/L (12-78); ALBUMIN 3.5 G/DL (3.4-5.0); ALBUMIN/GLOBULIN RATIO 0.9 (1.1-1.5); ALKALINE PHOSPHATASE 154 IU/L (46-116); ANION GAP 16 (8-16); ASPARTATE AMINO TRANSFERASE 191 U/L (10-37); BILIRUBIN,TOTAL 3.5 MG/DL (0.1-1.0); BLOOD UREA NITROGEN 7 MG/DL (7-18); BUN/CREATININE RATIO 8.4 (10.0-20.0); CALCIUM 8.8 MG/DL (8.5-10.1); CHLORIDE 111 MMOL/L (99-107); CREATININE 0.83 MG/DL (0.60-1.10); GLUCOSE 123 MG/DL (70-104); SODIUM 149 MMOL/L (135-145); TOTAL CARBON DIOXIDE 22.2 MMOL/L (24-32); TOTAL PROTEIN 7.6 G/DL (6.4-8.2); eCRCL 116 ML/MIN; eGFR > 90 ML/MIN
[2023-10-13] MEDS: ondansetron/PF 4mg/2ml inj IV ONE (04:13)
[2023-10-13 04:17] LABS: ETHANOL 242 MG/DL (<10); LIPASE 94 U/L (16-77); PRO BRAIN NATRIURETIC PEPTIDE < 30 PG/ML (0-125)
[2023-10-13] MEDS: ketorolac trometh 15mg/ml vial 15 MG/ML ML IV ONE (05:11)
[2023-10-13] MEDS: proCHLORperazine 10 MG/2 ml inj IV ONE (05:35)
[2023-10-13 07:00] VITALS: BP 156/93; PULSE 100; RESP 16; O2SAT 98
[2023-10-13] MEDS ORDERED: magnesium sulf-water 2g/50mL 50 ML IV ONE (09:10)
[2023-10-13] MEDS ORDERED: piperacillin/tazo 3.375gm/50ml 50 ML IV ONE (09:10)
[2023-10-13 09:19] LABS: MAGNESIUM 1.3 MG/DL (1.5-2.4)
== END 2023-10-13 10:00 | disposition left against medical advice (07) ==
LOC: ER 03:04
DX: K80.80 Other cholelithiasis without obstruction (principal); R74.01 Elevation of levels of liver transaminase levels; F10.129 Alcohol abuse with intoxication, unspecified; E87.6 Hypokalemia; E83.42 Hypomagnesemia; Z79.899 Other long term (current) drug therapy; Z98.890 Other specified postprocedural states
CPT/HCPCS: 36415; 71045; 74176; 76700; 80053; 83690; 83735; 83880; 84145; 84484; 85025; 93005; 96361; 96374; 96375; 99285; G0480; J0780; J1885; J2405; J7030; 80320